=== PATIENT | female | born 1960 | race Caucasian/White ===

== ENCOUNTER 2023-09-06 22:28 | Emergency (ER) | payer BC, SELFPAY ==
--- NOTE | ~2023-09-06 | CT_ITS ---
EXAMINATION: CTA chest PE protocol DATE: 09/07/2023 00:27 INDICATION: Shortness of breath. Chest pain. TECHNIQUE: Computed tomography angiography (CTA) of the chest was performed with 100 mL Omnipaque-350 intravenous contrast timed to evaluate the pulmonary arteries. Coronal maximum intensity projection 3D-reconstructions were created by the technologist. Automated exposure control and iterative reconst ruction technique were employed. The dose-length product was 840.54 mGy-cm. COMPARISON: None. FINDINGS: The lungs demonstrate mild atelectasis. A calcified nodule in left lung is consistent with old granulomatous disease. No pleural effusion. The heart size is normal. There are coronary artery c alcifications. No pericardial effusion. There is no pulmonary embolus. There are bridging endplate os teophytes at multiple levels in the spine, consistent with diffuse idiopathic skeletal hyperostosis ( DISH). There is severe upper thoracic spondylosis. IMPRESSION: 1. No pulmonary embolus. Reviewed, dictated and finalized at location A. IMPRESSION: 1. No pulmonary embolus.
[2023-09-06 22:28] VITALS: PULSE 121
[2023-09-06 22:32] VITALS: BP 132/70; PULSE 116; RESP 19; TEMP 36.5; O2SAT 98
--- NOTE | 2023-09-06 22:49 | ECG_ITS ---
Test Date: 2023-09-06 23:04:31 Measurements Intervals [place] Rate: 114 P: 0 FL: 0 QRS: -14 QRSD: 88 T: 80 QT: 302 QTc: 416 Interpretive Statements ATRIAL FLUTTER/TACHYCARDIA WITH RAPID VENTRICULAR RESPONSE VENTRICULAR PREMATURE COMPLEX LOW QRS VOLTAGE IN PRECORDIAL LEAD BORDERLINE ST-T WAVE ABNORMALITY- HIGH LATERAL LEADS BASELINE ARTIFACT- I, II, III, AVR, AVL, AVF ABNORMAL ECG No previous ECG available for comparison Electronically Signed On 09-07-2023 07:56:26 CDT by Pancho Peterson D.O.
[2023-09-06 23:02] VITALS: PULSE 125; RESP 20; O2SAT 98
[2023-09-06 23:03] LABS: Basophils Absolute Auto 0.05 K/mm3 (0.00-0.10); Basophils Percent Auto 0.6 % (0.0-1.0); Eosinophils Absolute Auto 0.28 K/mm3 (0.02-0.50); Eosinophils Percent Auto 3.1 % (1.0-6.0); Hematocrit 39.7 % (35.0-49.0); Hemoglobin 13.5 g/dL (12.0-15.0); Immature Granulocyte Absolute 0.03 K/mm3 (0.00-0.00); Immature Granulocyte Percent A 0.3 % (0.0-0.0); Lymphocytes Absolute Auto 3.23 K/mm3 (1.10-4.50); Lymphocytes Percent Auto 35.8 % (18.0-42.0); Mean Corpuscular Hemoglobin 30.6 pg (27.0-31.0); Mean Platelet Volume 9.1 fl (9.2-11.8); Monocytes Absolute Auto 0.62 K/mm3 (0.10-0.90); Monocytes Percent Auto 6.9 % (2.0-11.0); Neutrophils Absolute Auto 4.81 K/mm3 (1.70-7.20); Neutrophils Percent Auto 53.3 % (50.0-70.0); Platelet Count Result 329 K/mm3 (150-420); Red Blood Count 4.41 M/mm3 (4.20-5.40); Red Cell Distribution Width 12.7 % (11.6-14.4)
--- NOTE | 2023-09-06 23:04 | ED.CHESTPAIN ---
HPI - Chest Pain General Chief Complaint: Shortness of Breath/Dyspnea Stated Complaint: shortness of breath Time Seen by Provider: 09/06/23 22:41 Source: patient Mode of arrival: ambulatory Limitations: no limitations History of Present Illness HPI narrative: Patient is a 63-year-old female with chest pain and shortness of breath this evening. She has right chest pain that radiates to the midline and somewhat to the left chest. This is a similar sensation in to a prior PE. She is no longer on anticoagulation. She is postop surgery in the next few weeks for plastics. She has also had a DVT. She is not on chronic Coumadin or Eliquis. She is on aspirin. MD complaint: chest pain Pertinent past history: other ( prior PE) Onset (ago): day(s) (3) Timing of current episode: episodic Prior episodes: Yes Onset: during rest Pain location: left chest and right chest Pain radiation: neck and right shoulder Severity: moderate Pain scale (0-10): 5 Quality: tightness and sharp Relieving factors: nothing Exacerbating factors: nothing Context: history of DVT/PE Treatment prior to arrival: aspirin Risk Factors Coronary artery disease risk factors: diabetes Thoracic aortic dissection risk factors: none Pulmonary embolism risk factors: history of deep vein thrombosis and history of pulmonary embolism Related Data On Oral Contraceptives: No Home Medications Medication Instructions Recorded Confirmed cephalexin 500 mg capsule 500 mg PO Q12H 09/07/23 09/07/23 ergocalciferol (vitamin D2) 1,250 1,250 mcg PO DAILY 09/07/23 09/07/23 mcg (50,000 unit) capsule fenofibrate 160 mg tablet 160 mg PO DAILY 09/07/23 09/07/23 furosemide 20 mg tablet 20 mg PO DAILY 09/07/23 09/07/23 ibuprofen 800 mg tablet 800 mg PO PRN 09/07/23 09/07/23 insulin syringe-needle U-100 1 mL 09/07/23 09/07/23 27 gauge x 5/8 (Insulin Syringe MicroFine) insulin syringe-needle U-100 1 mL 09/07/23 09/07/23 31 gauge x 5/16 (TRUEplus Insulin) levothyroxine 150 mcg tablet 150 mcg PO DAILY 09/07/23 09/07/23 (Synthroid) levothyroxine 200 mcg tablet 200 mcg PO DAILY 09/07/23 09/07/23 (Synthroid) potassium chloride 20 mEq 20 meq PO DAILY 09/07/23 09/07/23 tablet,extended release(part/cryst) (Klor-Con M) semaglutide 2 mg/dose (8 mg/3 mL) 2 mg subcut WEEKLY 09/07/23 09/07/23 subcutaneous pen injector (Ozempic) zaleplon 10 mg capsule 10 mg PO PRN 09/07/23 09/07/23 Allergies Allergy/AdvReac Type Severity Reaction Status Date / Time No Known Allergies Allergy Verified 09/06/23 23:18 Review of Systems Review of Systems: All systems reviewed & are unremarkable except as noted in HPI and below Constitutional: Constitutional: Reports no additional constitutional complaints Eyes: Eyes: Reports no additional eye complaints ENT: Reports system reviewed and no additional complaints, except as documented Cardiovascular: Cardiovascular: Reports no additional cardiovascular complaints Respiratory: Respiratory: Reports no additional respiratory complaints Gastrointestinal: Gastrointestinal: Reports no additional gastrointestinal complaints Genitourinary: Genitourinary: Reports no additional female genitourinary complaints Musculoskeletal: Musculoskeletal: Reports no additional musculoskeletal complaints Integumentary/Breasts: Skin/Breast: Reports system reviewed and no additional complaints, except as docu Neurologic: Reports system reviewed and no additional complaints, except as documented Psychiatric: Psychiatric: Reports no additional psychiatric complaints Endocrine: Endocrine: Reports no additional endocrine complaints Hematologic/Lymphatic: Hematologic/Lymphatic: Reports no additional hematologic/lymphatic complaints Allergic/Immunologic: Allergic/Immunologic: Reports no additional allergic/immunologic complaints Exam Const: General: healthy appearing Nutritional Appearance: well nourished Orientation/consciousness: patient oriented
[2023-09-06 23:15] VITALS: PULSE 109; PULSE 129; RESP 26; O2SAT 98
[2023-09-06 23:17] VITALS: BP 151/99; PULSE 130; RESP 16; O2SAT 97
[2023-09-06 23:18] LABS: INR 0.9; Partial Thromboplastin Time 23.4 Sec (23.9-30.70); Prothrombin Time 10.4 Seconds (9.50-12.1)
[2023-09-06 23:29] LABS: Alanine Aminotransferase 18 U/L (14-59); Albumin Level 3.2 g/dL (3.4-5.0); Alkaline Phosphatase 51 U/L (46-116); Anion Gap 8 mmol/L (4-12); Aspartate Amino Transferase 12 U/L (15-37); Bilirubin,Total 0.3 mg/dL (0.00-1.00); Blood Urea Nitrogen 21 mg/dL (7-18); Calcium 9.7 mg/dL (8.5-10.1); Carbon Dioxide 26 mmol/L (21-32); Chloride 104 mmol/L (98-108); Estimated CRCL calculation 81 ml/min; Estimated Glomerular Filt Rate 60; Glucose 157 mg/dL (70-99); Osmolality Calculated 292 mOsm/kg (285-295); Potassium 3.8 mmol/L (3.5-5.1); Sodium 138 mmol/L (136-145); Total Protein 7.1 g/dL (6.4-8.2)
[2023-09-06] MEDS: dilTIAZem HCl INJ 25 MG/5 ML VIAL 10 MG IV PUSH (23:29)
[2023-09-06 23:30] LABS: Thyroid Stimulating Hormone 0.33 uIU/mL (0.36-3.74); Troponin I 11.9 ng/L (0.00-60.4)
[2023-09-06 23:59] VITALS: PULSE 109; RESP 19; O2SAT 98
[2023-09-07] VITALS (93 sets, daily range): BP systolic 101–156; BP diastolic 47–97; PULSE 71–139; RESP 5–34; O2SAT 93–100
[2023-09-07] MEDS: ENOXAPARIN 100 MG/ML SYRINGE SUB-Q (03:24)
[2023-09-07] MEDS: ENOXAPARIN 40 MG/0.4 ML SYRINGE SUB-Q (03:25)
--- NOTE | 2023-09-07 07:02 | PC.NURSE ---
handoff report given to DALE Lindsay
--- NOTE | 2023-09-07 07:09 | PC.NURSE ---
0705 report from DALE Cote. introduced self to pt, pt sitting up on side of bed. call ott in reach.
--- NOTE | 2023-09-07 08:33 | PC.NURSE ---
breakfast tray provided to pt.
[2023-09-07] MEDS: dilTIAZem HCL CD 120 MG CAP.24HR PO (13:22)
--- NOTE | 2023-09-07 14:12 | PC.NURSE ---
pt up and ambulated to bathroom. awaiting ems arrival.
--- NOTE | 2023-09-07 14:30 | PC.NURSE ---
1425 pt ambulated to ems cot. stable and alert. no chest pain.
== END 2023-09-07 14:31 | disposition short-term general hospital (02) ==
PROVIDERS: Emergency Medicine; Emergency Provider Emergency Medicine
DX: I48.92 Unspecified atrial flutter (principal); Z79.82 Long term (current) use of aspirin; Z79.01 Long term (current) use of anticoagulants; Z79.4 Long term (current) use of insulin; Z86.718 Personal history of other venous thrombosis and embolism
CPT/HCPCS: 36415; 71275; 80053; 84443; 84484; 85025; 85610; 85730; 93005; 96372; 96374; 99285; A9270; J1650; Q9967

== ENCOUNTER 2023-09-07 15:05 | Observation (INO) | payer BC, SELFPAY ==
[2023-09-07] VITALS (8 sets, daily range): BP systolic 138–157; BP diastolic 80–96; PULSE 71–91; RESP 16–20; TEMP 36.4–36.5; O2SAT 99–100; BMI 45.9
--- NOTE | 2023-09-07 15:06 | ADMGEN ---
This patient, Chantale Waldrop, was admitted to IMU Room 202-01 from [facility] at 1500. Patient/family oriented to hospital policies and general routines including ID bracelet, bed and alarms, visiting hours, pain management, procedures, bathroom and other care routines, personal items, smoking policy, room service/diet, and visiting hours. Information on how to activate the Rapid Response Team has been discussed. Patient/Family are encouraged to report perceived risks to care and to ask questions if they do not understand what they are told or what they should do.
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
--- NOTE | 2023-09-07 15:27 | ECG_ITS ---
Test Date: 2023-09-07 19:48:34 Measurements Intervals [place] Rate: 84 P: 0 ND: 0 QRS: 0 QRSD: 92 T: 142 QT: 357 QTc: 424 Interpretive Statements ATRIAL FLUTTER/TACHYCARDIA DELAYED PRECORDIAL R/S TRANSITION LEFT VENTRICULAR HYPERTROPHY WITH ST-T CHANGE NONSPECIFIC ST ABNORMALITY- LATERAL LEADS BASELINE ARTIFACT- I, II, III, AVR, AVL, AVF, V1-V3 ABNORMAL ECG Compared to ECG 09/06/2023 23:04:31 HEART RATE HAS DECREASED Electronically Signed On 09-08-2023 07:35:05 CDT by Pancho Peterson D.O.
[2023-09-07 16:02] LABS: Troponin I < 0.012 ng/mL (0.000-0.034)
[2023-09-07 16:07] LABS: Free T4 Free Thyroxine 1.81 ng/mL (0.78-2.19)
[2023-09-07 19:15] LABS: Troponin I < 0.012 ng/mL (0.000-0.034)
[2023-09-07] MEDS: ENOXAPARIN 40 MG/0.4 ML SYRINGE SUB-Q (20:39)
[2023-09-07] MEDS: NITROGLYCERIN SL 0.4 MG TABLET SUBLINGUAL (20:41)
[2023-09-07 20:58] LABS: Influenza A QL RT-PCR Negative (Negative); Influenza B QL RT-PCR Negative (Negative); RSV RNA, RT-PCR Negative (Negative); SARS-CoV-2 RNA PCR Negative (Negative)
[2023-09-07 21:33] LABS: Glucose Point of Care 146 mg/dl (65-105)
[2023-09-07] MEDS: BELLADONNA ALK/PHENOB ELIX 10 ML, MAG HYDROX/ALUMINUM HYD/SIMETH 30 ML, LIDOCAINE HCL 2... PO (22:08)
[2023-09-08] VITALS (18 sets, daily range): BP systolic 134–164; BP diastolic 76–98; PULSE 56–90; RESP 16–20; TEMP 36.3–36.6; O2SAT 98–100
--- NOTE | 2023-09-08 01:03 | ECG_ITS ---
Test Date: 2023-09-08 01:11:55 Measurements Intervals [place] Rate: 77 P: 177 NC: 167 QRS: 199 QRSD: 105 T: 117 QT: 399 QTc: 454 Interpretive Statements SINUS RHYTHM ARM LEADS REVERSED DELAYED PRECORDIAL R/S TRANSITION BASELINE ARTIFACT- I, II, AVR, AVL ATYPICAL ECG Compared to ECG 09/07/2023 19:48:34 Atrial flutter no longer present Electronically Signed On 09-08-2023 07:37:53 CDT by Pancho Peterson D.O.
[2023-09-08] MEDS: WATER FOR IRRIGATION, STERILE 1,000 ML BOTTLE 1000 ML (01:13)
[2023-09-08 05:10] LABS: Basophils Percent Auto 0.5 % (0.2-1.2); Eosinophils Absolute Auto 0.2 K/mm3 (0-0.3); Eosinophils Percent Auto 3.1 % (0-4.4); Hematocrit 40.7 % (37.0-47.0); Hemoglobin 13.5 g/dL (12.0-15.0); Immature Granulocyte Absolute 0.01 K/mm3 (0.00-0.031); Immature Granulocyte Percent A 0.1 % (0-0.5); Lymphocytes Percent Auto 35.4 % (18.3-44.2); Mean Corpuscular HGB Conc 33.2 g/dl (32-36); Mean Corpuscular Hemoglobin 30.3 pg (26-34); Mean Corpuscular Volume 91.5 fl (80-100); Mean Platelet Volume 9.7 fl (7.4-10.4); Monocytes Absolute Auto 0.5 K/mm3 (0.1-0.6); Monocytes Percent Auto 6.4 % (2.6-8.5); Neutrophils Absolute Auto 4.2 K/mm3 (1.3-6.7); Neutrophils Percent Auto 54.5 % (45.5-73.1); Platelet Count Result 336 k/mm3 (150-375); Red Blood Count 4.45 M/mm3 (4.2-5.4); Red Cell Distribution Width 12.9 % (11.5-14.5); White Blood Count 7.6 K/mm3 (4.5-10.0)
[2023-09-08 05:24] LABS: Hemoglobin A1C 6.2 % (<5.7)
[2023-09-08 05:26] LABS: Anion Gap 6 mmol/L (4-12); Blood Urea Nitrogen 17 mg/dL (7-17); Calcium 9.4 mg/dL (8.4-10.2); Carbon Dioxide 28 mmol/L (22-30); Chloride 106 mmol/L (98-107); Estimated CRCL calculation 95 ml/min; Estimated Glomerular Filt Rate > 60; Glucose 136 mg/dL (65-110); Potassium 3.7 mmol/L (3.4-5.0); Sodium 140 mmol/L (137-145)
[2023-09-08] MEDS: LEVOTHYROXINE SODIUM 100 MCG TABLET 200 MCG PO (06:03)
[2023-09-08] MEDS: LEVOTHYROXINE SODIUM 150 MCG TABLET PO (06:03)
[2023-09-08] MEDS: dilTIAZem HCL CD 120 MG CAP.24HR PO (06:14)
[2023-09-08 07:49] LABS: Glucose Point of Care 155 mg/dl (65-105)
--- NOTE | 2023-09-08 09:11 | PM.IMPN ---
Progress Note: A&P Assessment and Plan (1) Atrial arrhythmia: Code(s): I49.8 - Other specified cardiac arrhythmias Status: Acute Assessment and Plan: EKG with new onset afib on admission and pt was symptomatic, placed on Cardizem -last EKG reveals NSR at 1am but pt was symptomatic with tachycardia again at 7am--no ekg done at that time. -troponins negative x 3 -echo ordered; won't be done until saturday per cardiology -Increase lovenox to 1mg/kg dose. Will roca eliquis -TSH a bit low, on levothyroxine but pt had TSH a few weeks ago that was 0.169. would recommend rechecking in 4 weeks as it is already better than the first outpt draw. no adjustment needed at this time -continue telemetry monitoring -cardiology consult -no pulmonary edema on CT, pt euvolemic on exam--on lasix at home PRN. check bnp -no infx on exam or hx (2) Diabetes: Code(s): E11.9 - Type 2 diabetes mellitus without complications Status: Acute Assessment and Plan: A1c in good control -continue ozempic and dietary modification -SSI while hospitalized (3) Afib: Code(s): I48.91 - Unspecified atrial fibrillation Status: Acute Assessment and Plan: as above (4) Hypothyroidism: Code(s): E03.9 - Hypothyroidism, unspecified Status: Acute Assessment and Plan: As above -recommend checking TSH in 4 weeks Plan pt has a piniculectomy scheduled for next month. I let her know she will need cardiology eval and a AC plan before this occurs and that she should talk to her doctor about th is. She agree. Diet: Heart healthy, diabetic GI Prophylaxis: Not currently indicated DVT Prophylaxis: Lovenox b.i.d. Lines: Peripheral Code Status: Full code Time Spent With Patient Time with patient: 25 - 35 minutes Subjective Date/time seen: 09/08/23 09:11 Interval history: Pt is a 63-year-old female who is here for chest pain with elevated heart rate. Patient was seen today and states the symptoms reoccurred this morning around 7:00 a.m.. She let her nurse know and she was given the Cardizem which made her feel better. She had shortness of breath, nausea, chest palpitations, and a slight headache during this time. She has not had any other issues such as dysuria, constipation, new rashes, wounds, or leg swelling. She takes lasix PRN at home for swelling. no hx of cardiac dz. She does have hx of DVT and PE. Review of Systems Review of Systems: All systems reviewed & are unremarkable except as noted in HPI and below Exam Narrative: General: Well developed well nourished patient in NAD HEENT: normocephalic Neck: supple Neuro: Alert and oriented x4. Strength 5/5 in UE and LE bilaterally CV:RRR on exam. tele with afib [id number] at 7am. now back to normal rate Resp:CTA, bilaterally Abd: Soft, non distended. No pain to palpation. Positive bowel sounds Extremities: No swelling, erythema, or pain to palpation. Objective Data Vital Signs Vital Signs: Vital Signs - 24 hr 09/07/23 15:22 09/07/23 15:52 09/07/23 16:00 Temperature 97.7 F Pulse Rate 71 90 Respiratory Rate 16 Blood Pressure 157/96 H Pulse Oximetry 100 Oxygen Delivery Room Air 09/07/23 18:00 09/07/23 19:51 09/07/23 20:00 Temperature 97.6 F Pulse Rate 85 91 Respiratory Rate 19 Blood Pressure 151/80 H Pulse Oximetry 99 Oxygen Delivery Room Air 09/07/23 20:50 09/07/23 20:00 09/07/23 22:00 Temperature Pulse Rate 77 73 Respiratory Rate Blood Pressure 138/83 Pulse Oximetry Oxygen Delivery 09/07/23 23:35 09/08/23 00:00 09/08/23 00:00 Temperature 97.8 F Pulse Rate 73 70 73 Respiratory Rate 20 20 Blood Pressure 141/89 H Pulse Oximetry 99 99 Oxygen Delivery Autopap 09/08/23 00:00 09/08/23 02:00 09/08/23 03:47 Temperature Pulse Rate 90 Respiratory Rate Blood Pressure Pulse Oximetry Oxygen Delivery Room Air [place]
[2023-09-08] MEDS: ENOXAPARIN 100 MG/ML SYRINGE SUB-Q (09:23)
[2023-09-08] MEDS: FENOFIBRATE 160 MG TABLET PO (09:24)
[2023-09-08] MEDS: POTASSIUM CHLORIDE 20 MEQ ER TABLET PO (09:24)
[2023-09-08] MEDS: ENOXAPARIN 40 MG/0.4 ML SYRINGE SUB-Q (09:24)
[2023-09-08] MEDS: FUROSEMIDE 20 MG TABLET PO (09:24)
[2023-09-08] MEDS: ERGOCALCIFEROL 50,000 UNITS CAPSULE 50000 UNITS PO (09:27)
[2023-09-08 10:57] LABS: NT Pro B Type Natriuretic Pept 785 pg/mL (19.9-100)
[2023-09-08 11:36] LABS: Glucose Point of Care 151 mg/dl (65-105)
--- NOTE | 2023-09-08 12:45 | PM.CNCAR ---
Assessment and Plan Assessment and plan (1) Atrial flutter: Code(s): I48.92 - Unspecified atrial flutter Status: Acute Plan This is a 63-year-old lady presenting with symptomatic atrial flutter with RVR. She has converted to sinus rhythm after being rate controlled with diltiazem yesterday is currently still having some symptoms of pleuritic sounding chest pain but no other symptoms currently. The etiology of her atrial fibrillation is almost certainly related to untreated sleep apnea/morbid obesity. Discussed treatment options with the patient and recommended anti coagulation and antiarrhythmic therapy currently. The patient is hesitant to take a specific antiarrhythmic agent. For that reason I will start with metoprolol and apixaban. 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 We also had a discussion regarding the importance of treating her sleep apnea as the source of atrial arrhythmias are highly correlated with sleep disordered breathing. Will review her echocardiogram when it is done tomorrow and her telemetry. Hopefully she will remain in sinus rhythm, stable and be able to be discharged for outpatient follow-up tomorrow Zeferino Garcia MD [facility] History of Present Illness History of Present Illness Consult date/time: 09/08/23 12:45 Reason For Visit: a flutter Narrative: This is a 63-year-old woman I am seeing today at the request of the hospitalist to assist with the management and evaluation of atrial flutter. She is not known to me prior to this consultation and I do not believe she has been hospitalized here at [facility] in the past. She was transferred here yesterday from the emergency room in [place] with the diagnosis of new onset atrial flutter. She came to the emergency room up there reporting symptoms of palpitations, tachycardia shortness of breath with modest activity. She also has been having some episodes of sharp pinpoint chest pain that she describes in the low substernal region. She also has some pain in the chest when she takes a deep breath. She was found to be in atrial flutter with a moderately rapid ventricular response. She was placed on diltiazem after receiving an oral bolus dosage and anticoagulation with Lovenox. She was transferred to this hospital for further is her assessment and management. The patient has no prior history of cardiac problems that she can recall. She does have a history of morbid obesity, hypothyroidism as well as a history of untreated sleep apnea. 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 She moved here recently from [place] for family reasons and resides in the [facility]. She normally does not have any exertional symptoms such as chest pain shortness of breath she denies orthopnea PND or edema. Earlier today she converted to sinus rhythm on telemetry. She is currently asymptomatic other than still having some low thoracic back pain when she takes a deep breath. CTA was negative for evidence of pulmonary embolism. She does have a prior history of DVT/PE several times over the years. Most recent episode of DVT was a few years ago coincident with a COVID infection. Her physician in [place] has had her anticoagulated in the past but currently she is not anticoagulated. Review of Systems Constitutional: Constitutional: Reports no additional constitutional complaints Eyes: Eyes: Reports no additional eye complaints ENT: Reports system reviewed and no additional complaints, except as documented Cardiovascular: Cardiovascular: Reports as per HPI Respiratory: Respiratory: Reports as per HPI Gastrointestinal: Gastrointestinal: Reports no additional gastrointestinal complaints Musculoskeletal: Musculoskeletal: Reports no additional musculoskeletal complaints Integumentary/Breasts: Skin/Breast: Reports system revie
[2023-09-08] MEDS: METOPROLOL SUCCINATE EXT REL 50 MG TABCR PO (15:24)
[2023-09-08 16:39] LABS: Glucose Point of Care 134 mg/dl (65-105)
[2023-09-08 20:04] LABS: Glucose Point of Care 147 mg/dl (65-105)
[2023-09-08] MEDS: APIXABAN 5 MG TABLET PO (21:20)
[2023-09-09] VITALS (9 sets, daily range): BP systolic 114–157; BP diastolic 58–74; PULSE 62–77; RESP 16–20; TEMP 36–36.7; O2SAT 98–100
--- NOTE | 2023-09-09 | ECHO_ITS ---
Patient Info Name: Chantale Waldrop Age: 63 years : 1960 Gender: Female Ht: 68 in Wt: 302 lbs BSA: 2.64 m2 HR: 71 bpm BP: 114 / 64 mmHg Heart Rhythm: Sinus Rhythm Technical Quality: Fair Exam Date: 09/09/2023 8:57 AM Exam Location: Echo Lab Patient Status: Inpatient Admit Date: 09/07/2023 Staff Ordering Physician: Pooja Abraham APRN First Beater: Denis Pineda MARILEE Attending Provider: Nancy Sanford PA-C Referring Physician: Leigh MARADIAGA; Exam Type: CA echo dop color flow w con Study Info Indications - atrial flutter Complete two-dimensional, color flow and Doppler transthoracic echocardiogram is performed with contrast to opacify the left ventricle and to improve the deliniation of the left ventricle endocardial borders. Contrast/Agitated Saline Contrast/Ag. Saline: Definity Amount: 2.00 ml IV Access Condition: patent with no signs of infiltration Summary 1. Left ventricular chamber dimension is mildly enlarged. 2. Left ventricular systolic function is normal, estimated at 60-65%. 3. There is mildly increased left ventricular wall thickness. 4. The left ventricular diastolic function is normal. 5. Left atrial chamber dimension is moderately enlarged. 6. There is mild aortic valve stenosis with a peak velocity of 174.81 cm/s, mean gradient of 6 mmHg, and aortic valve area of 2.00 cm2. 7. There is moderate aortic valve calcification. 8. There is mild to moderate mitral valve regurgitation. 9. There is mild tricuspid valve regurgitation. 10. Mild pulmonary hypertension, estimated pulmonary arterial systolic pressure is 36 mmHg. 11. There is mild pulmonic regurgitation. Left Ventricle Left ventricular chamber dimension is mildly enlarged. Left ventricular systolic function is normal, estimated at 60-65%. There is mildly increased left ventricular wall thickness. The left ventricular diastolic function is normal. Right Ventricle Right ventricular chamber dimension is normal. Right ventricular systolic function is normal. Left Atria Left atrial chamber dimension is moderately enlarged. Right Atria Right atrial chamber dimension is normal. Atrial Septum Intact interatrial septum visualized by color flow imaging. Aortic Valve The aortic valve is trileaflet. There is mild aortic valve stenosis with a peak velocity of 174.81 cm/s, mean gradient of 6 mmHg, and aortic valve area of 2.00 cm2. There is trace aortic valve regurgitation. There is moderate aortic valve calcification. Pulmonic Valve The pulmonic valve is normal. There is no pulmonic valve stenosis. There is mild pulmonic regurgitation. Mitral Valve The mitral valve has normal leaflets. There is no mitral valve stenosis. There is mild to moderate mitral valve regurgitation. Tricuspid Valve The tricuspid valve leaflets are normal. There is no significant tricuspid valve stenosis. There is mild tricuspid valve regurgitation. Mild pulmonary hypertension, estimated pulmonary arterial systolic pressure is 36 mmHg. Pericardium/Pleural The pericardium appears normal. There is no pericardial effusion. Inferior Vena Cava Normal inferior vena cava with >50% collapse upon inspiration consistent with normal right atrial pressure, 10 mmHg. Aorta The aortic root size at the sinus of Valsalva is normal. Left Ventricular Outflow Tract Name Value Normal
[2023-09-09 04:42] LABS: Alanine Aminotransferase 14 U/L (6-35); Albumin Level 3.5 g/dL (3.5-5.1); Alkaline Phosphatase 53 U/L (38-126); Anion Gap 11 mmol/L (4-12); Aspartate Amino Transferase 17 U/L (14-36); Bilirubin,Total 0.3 mg/dL (0.2-1.3); Blood Urea Nitrogen 15 mg/dL (7-17); Calcium 9.2 mg/dL (8.4-10.2); Carbon Dioxide 23 mmol/L (22-30); Chloride 105 mmol/L (98-107); Estimated CRCL calculation 96 ml/min; Estimated Glomerular Filt Rate > 60; Glucose 126 mg/dL (65-110); Potassium 3.6 mmol/L (3.4-5.0); Sodium 139 mmol/L (137-145)
[2023-09-09] MEDS: LEVOTHYROXINE SODIUM 150 MCG TABLET PO (06:14)
[2023-09-09] MEDS: LEVOTHYROXINE SODIUM 100 MCG TABLET 200 MCG PO (06:14)
[2023-09-09] MEDS: METOPROLOL SUCCINATE EXT REL 50 MG TABCR PO (10:10)
[2023-09-09] MEDS: FENOFIBRATE 160 MG TABLET PO (10:10)
[2023-09-09] MEDS: APIXABAN 5 MG TABLET PO (10:10)
--- NOTE | 2023-09-09 10:19 | PM.PNCARD ---
Progress Note: A&P Assessment and Plan (1) Atrial flutter: Code(s): I48.92 - Unspecified atrial flutter Status: Acute Assessment and Plan: Still in sinus rhythm. Continue metoprolol and Eliquis. Echocardiograms is pending. Assuming unremarkable, okay for discharge (2) Hypokalemia: Code(s): E87.6 - Hypokalemia Status: Acute Assessment and Plan: Potassium 3.5 today. Will replace with 40 mEq of potassium chloride p.o. x1. (3) PIO (obstructive sleep apnea): Code(s): G47.33 - Obstructive sleep apnea (adult) (pediatric) Status: Acute Assessment and Plan: Will need outpatient sleep study and referral to Sleep Medicine (4) Personal history of thromboembolic disease: Code(s): Z86.718 - Personal history of other venous thrombosis and embolism Status: Acute Assessment and Plan: Continue Eliquis perioperatively. Will not need enoxaparin for upcoming panniculectomy as patient should be on full anticoagulation in the form of Eliquis due to atrial flutter Subjective Date/time seen: 09/09/23 10:19 Interval history: Pt is a 63-year-old female who is here for chest pain with elevated heart rate. Date of service 09/09/2023: Still in sinus rhythm. Feels well. Wants to go home. No chest pain or shortness breath Review of Systems Constitutional: Constitutional: Reports no additional constitutional complaints Eyes: Eyes: Reports no additional eye complaints ENT: Reports system reviewed and no additional complaints, except as documented Cardiovascular: Cardiovascular: Reports as per HPI Respiratory: Respiratory: Reports as per HPI Gastrointestinal: Gastrointestinal: Reports no additional gastrointestinal complaints Musculoskeletal: Musculoskeletal: Reports no additional musculoskeletal complaints Integumentary/Breasts: Skin/Breast: Reports system reviewed and no additional complaints, except as docu Endocrine: Endocrine: Reports no additional endocrine complaints Hematologic/Lymphatic: Hematologic/Lymphatic: Reports no additional hematologic/lymphatic complaints Allergic/Immunologic: Allergic/Immunologic: Reports no additional allergic/immunologic complaints Exam Const: General: comfortable and no acute distress Other: Pleasant obese white female(BMI 46) comfortable cooperative no distress HENMT: Mouth: Yes moist mucous membranes Eyes: Sclera: sclerae normal Neck: Neck: supple Other: No carotid bruits, difficult to comment on JVD because of obesity Resp: Effort & Inspection: normal respiratory effort Auscultation: clear to auscultation bilaterally Cardio: Rate: regular rate Rhythm: regular rhythm Other: No audible murmur, PMI is not palpable GI: Auscultation: normal bowel sounds Skin: General skin exam: normal color Neuro: Speech: normal speech Other: Alert and oriented x3 Extrem: General: normal to inspection Other: Normal perfusion Psych: Affect: normal affect Objective Data Vital Signs Vital Signs: Vital Signs - 24 hr 09/08/23 11:38 09/08/23 12:00 09/08/23 14:00 Temperature 36.3 C L Pulse Rate 74 73 64 Respiratory Rate 20 Blood Pressure 164/98 H Pulse Oximetry 100 Oxygen Delivery 09/08/23 12:00 09/08/23 15:24 09/08/23 16:00 Temperature 36.4 C Pulse Rate 64 71 Respiratory Rate 16 Blood Pressure 134/76 Pulse Oximetry 99 Oxygen Delivery Room Air 09/08/23 16:00 09/08/23 18:00 09/08/23 16:00 Temperature Pulse Rate 57 L 59 L Respiratory Rate Blood Pressure Pulse Oximetry Oxygen Delivery Room Air 09/08/23 19:37 09/08/23 23:18 09/09/23 00:00 Temperature 36.4 C L 36.5 C Pulse Rate 56 L 74 68 Respiratory Rate 18 16 16 Blood Pressure 147/76 H 122/59 L Pulse Oximetry 100 98 98 Oxygen Delivery Autopap 09/08/23 20:00 09/08/23 22:00 09/09/23 00:00 Temperature Pulse Rate 74 70 69 Respiratory Rate Blood Press
[2023-09-09] MEDS: POTASSIUM CHLORIDE 20 MEQ ER TABLET 40 MEQ PO (11:29)
--- NOTE | 2023-09-09 13:07 | PM.DS ---
DS: Admitting Diagnosis Discharge Date 09/09/23 Admitting Diagnosis Atrial fib/flutter and RVR DS: Discharge Diagnosis Discharge Diagnosis (1) Atrial arrhythmia: Code(s): I49.8 - Other specified cardiac arrhythmias Status: Acute (2) Atrial flutter: Code(s): I48.92 - Unspecified atrial flutter Status: Acute (3) PIO (obstructive sleep apnea): Code(s): G47.33 - Obstructive sleep apnea (adult) (pediatric) Status: Acute (4) Personal history of thromboembolic disease: Code(s): Z86.718 - Personal history of other venous thrombosis and embolism Status: Acute DS: Summary Hospital Course Reason for hospitalization: Atrial fibrillation RVR Hospital Course: Patient is a 63-year-old female 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 Patient was found to be in atrial fibrillation/flutter at this on ED in transfer to [facility] for further evaluation. Of note patient has significant VT history with PE in 1982 and 2019, DVT in 2015. She is currently not on anticoagulation. Patient converted to normal sinus rhythm 09/06 after dose of Cardizem. Cardiology consult recommendations for metoprolol 50 mg Toprol-XL daily, Eliquis for anticoagulation for elevated [id number] score 5. Patient echocardiogram 09/09/2023 with no WMA, EF 60-65%, normal diastolic function, mild aortive valve stenosis, moderate aortic valve calcification. At time of discharge, patient's labs are stable, vitals stable, patient is stable for discharge home. She will follow up with Cardiology in 1 month. She will need to establish care with PCP, referrals given. She will need outpatient sleep study for CPAP machine. Cardiology will take care of patient's cardiac clearance for panniculectomy at the office. No stress test needed, no issues with ADLs. Hemoglobin A1c 6.2, TSH 0.33, free T4 1.81. Patient understands and agrees with plan. Status at Discharge Cognitive/behavioral status at discharge: Baseline Time Spent with Patient Time attestation: Total time spent providing and/or coordinating discharge services: 35 minutes Exam Narrative: - GENERAL: Pleasant obese elderly woman no acute distress. Well-nourished. - EYES: EOMI. Anicteric. - HENT: Moist mucous membranes. - LUNGS: Clear to auscultation bilaterally, no wheezing, rhonchi, or rales. - CARDIOVASCULAR: Regular rate and rhythm. No murmur. No JVD. - ABDOMEN: Soft, non-tender and non-distended. No palpable masses. - EXTREMITIES: No edema. Peripheral pulses 2+. Non-tender. - NEUROLOGIC: No focal neurological deficits. CN II-XII grossly intact. - PSYCHIATRIC: Awake, Alert and oriented x 3. Appropriate mood and affect. - SKIN: No rashes or lesions. Warm. - LYMPH: No cervical lymphadenopathy. DS: Data Data Completed and Pending Labs on day of discharge: Labs from last 24 hours 09/09/23 09/08/23 09/08/23 03:53 19:42 16:16 Sodium 139 Potassium 3.6 Chloride 105 Carbon Dioxide 23 Anion Gap 11 BUN 15 Creatinine 0.80 Estim Creat Clear Calc 96 Estimated GFR > 60 Glucose 126 H POC Capillary Glucose 147 H 134 H Calcium 9.2 Total Bilirubin 0.3 AST 17 ALT 14 Alkaline Phosphatase 53 Total Protein 6.0 L Albumin 3.5 Imaging Radiologist's impression: TTE 09/09/23 Summary 1. Left ventricular chamber dimension is mildly enlarged. 2. Left ventricular systolic function is normal, estimated at 60-65%. 3. There is mildly increased left ventricular wall thickness. 4. The left ventricular diastolic function is normal. 5. Left atrial chamber dimension is moderately enlarged. 6. There is mild aortic valve stenosis with a peak velocity of 174.81 cm/s, mean gradient of 6 mmHg, and aortic valve area of 2.00 cm2. 7. There is moderate aortic valve calcification. 8. There is mild to moderate mitral
[2023-09-09] MEDS: PERFLUTREN LIPID MICROSPHERES 1.5 ML VIAL DILUTED TO 10 ML TOTAL VOLUME IV PUSH (13:45)
--- NOTE | 2023-09-09 13:45 | IVDEFINITY ---
Prior to administration of IV Definity the patient was educated on the risks and benefits of the imaging enhancing agent including potential adverse side effects. The patient verbalized understanding. Allergies were verified. No exclusion criteria were identified and at least one of the following inclusion criteria were met: 1) physician request, 2) patient technically difficult to image (per the [place] [employer] Echocardi[employer] guidelines of two or more segments not discernable within the apical view), or 3) questionable left ventricular function. ?
[2023-09-09 16:32] LABS: Glucose Point of Care 121 mg/dl (65-105)
[2023-09-11 15:47] LABS: T3 Free 2.8 pg/mL
== END 2023-09-09 15:19 | disposition home or self-care (01) ==
PROVIDERS: Student in an Organized Health Care Education/Training Program; Admitting Provider Internal Medicine; Visit Provider Physician Assistant
DX: I48.92 Unspecified atrial flutter (principal); R00.0 Tachycardia, unspecified; E87.6 Hypokalemia; R06.02 Shortness of breath; E06.3 Autoimmune thyroiditis; G47.33 Obstructive sleep apnea (adult) (pediatric); I08.3 Combined rheumatic disorders of mitral, aortic and tricuspid valves; I27.20 Pulmonary hypertension, unspecified; E78.5 Hyperlipidemia, unspecified; I49.8 Other specified cardiac arrhythmias; E66.01 Morbid (severe) obesity due to excess calories; Z68.42 Body mass index [BMI] 45.0-49.9, adult; Z86.711 Personal history of pulmonary embolism; Z86.718 Personal history of other venous thrombosis and embolism; Z79.85 Long-term (current) use of injectable non-insulin antidiabetic drugs; Z20.822 Contact with and (suspected) exposure to COVID-19
CPT/HCPCS: 36415; 80048; 80053; 82948; 83036; 83880; 84439; 84480; 84484; 85025; 87637; 93005; 96372; 96374; A9270; C8929; G0378; J1650; Q9957

== ENCOUNTER 2024-06-24 15:01 | Outpatient (CLI) | payer BC, SELFPAY ==
--- NOTE | ~2024-06-24 | MM_ITS ---
EXAMINATION: MM screening robi BI w fabian HISTORY: Screening TECHNIQUE: Craniocaudal and mediolateral oblique 3-D tomosynthesis images were obtained and synthetic 2-D images were generated. CAD analysis was submitted and interpreted. COMPARISON: No prior mammogram is available for comparison at this institution. BREAST PARENCHYMAL COMPOSITION: Not dense: There are scattered areas of fibroglandular density. FINDINGS: There is no evidence of suspicious mass, calcification, or architectural distortion to sugg est malignancy in either breast. There has been no suspicious interval change. IMPRESSION: 1. No mammographic evidence of malignancy. 2. Recommend routine screening mammography in one year. BI-RADS Category 1: Negative Reviewed, dictated and finalized at location A.
--- OUTSIDE RECORDS SUMMARY | 2024-06-24 17:05 | XMS_ITS | Referral Summary ---
Author Organization [facility] [address] Address [address] [facility] [address] [place] [address] Care Team Providers Care Visual Display Manager Name Role Phone Unknown, Notinfile Primary Care Provider Unavail able Encounters Date Type Department Care Team Description 05/07/2024 2:30 PM RN TRAVEL Office Visit [facility] Cardiology at [address] [place] [address] Zeferino Garcia MD Typical atrial flutter (HCC) (Primary Dx); Lipid screening from Last 3 Months Allergies No known active allergies Medications ergocalciferol (VITAMIN D) 50,000 unit capsule 09/03/2023 Active fenofibrate (TRIGLIDE) 160 mg tablet 09/29/2023 Active furosemide (LASIX) 20 mg tablet as needed 09/03/2023 Active ibuprofen (ADVIL,MOTRIN) 800 mg tablet as needed 09/02/2023 Activ e Synthroid 150 mcg tablet Take 200 mg along with 150 mg daily 09/29/2023 Active Klor-Con M20 20 mEq CR tablet 09/03/2023 Activ e Ozempic 2 mg/dose (8 mg/3 mL) pen injector injection 09/03/2023 Active zaleplon (SONATA) 10 mg capsule as needed 09/03/2023 Activ e Eliquis 5 mg tabletIndications :atrial fibrillation Take 1 tablet (5 mg total) by mouth 2 (two) times a day 180 tablet 3 10/01/2023 10/01/19 25 Active metoprolol XL (TOPROL-XL) 50 mg extended release tabletIndications :Typical atrial flutter (HCC) Take 1 tablet (50 mg total) by mouth daily 90 tablet 3 10/01/2023 10/01/19 25 Active vitamin b complex tablet Take 1 tablet by mouth daily Active multivitamin tabletIndications :Vitamin Deficiency Prevention Take 1 tablet by mouth Active magnesium oxide (MAG-OX) 400 mg (241.3 mg elemental magnesium) tabletIndications :hypomagnesemia Take 1 tablet (400 mg total) by mouth daily Active biotin 10,000 mcg capsule Take by mouth daily Active Active Problems Problem Noted Date Diagnosed Date Typical atrial flutter 05/07/2024 Morbid (severe) obesity due to excess calories 0 09/30/2023 Body mass index (BMI) 45.0-49.9, adult Other thrombophilia 09/30/2023 Social History Tobacco Use Types Packs/Day Years Used Date Smoking Tobacco: Former Cigarettes Smokeless Tobacco: Never Tobacco Cessation:Counseling Given: Not Answered Comments Unknown Sex and Gender Information Value Date Recorded Sex Assigned at Not on file Legal Sex Female 7:40 PM RN TRAVEL Gender Identity Not on file Sexual Orientation Not on file Last Filed Vital Signs Vital Sign Reading Time Taken Comments Blood Pressure 132/82 05/07/2024 2:36 PM RN TRAVEL Pulse 63 05/07/2024 2:36 PM RN TRAVEL Temperature - - Respiratory Rate - - Oxygen Saturation 96% 05/07/2024 2:36 PM RN TRAVEL Inhaled Oxygen Concentration - - Weight 134.3 kg (296 lb) 05/07/2024 2:36 PM RN TRAVEL Height 172.7 cm (5' 8 ) 05/07/2024 2:36 PM RN TRAVEL Body Mass Index 45.01 05/07/2024 2:36 PM RN TRAVEL Plan of Treatment Not on file Procedures Procedure Name Priority Date/Time Associated Diagnosis Comments POCT LIPID PANEL Routine 05/07/2024 2:30 PM RN TRAVEL Lipid screening from Last 3 Months Results * POCT lipid panel (05/07/2024 2:30 PM RN TRAVEL) Cholesterol, POC 219 mg/dL HDL, POC 45 mg/dL Triglycerides, POC 283 mg/dL LDL Cholesterol POC 117 mg/dL Chol/HDL Ratio, POC 4.9 Non-HDL Cholesterol, POC 174 mg/dL Cholesterol Total, POC 219 mg/dL Capillary blood 05/07/2024 2 :30 PM RN TRAVEL Zeferino Garcia MD POINT OF CARE TEST ORDER FERMÍN Final Result from Last 3 Months Insurance [employer] ACCESS Care Teams Visual Display Manager Relationship Specialty Start Date End Date Unknown, Notinfile PCP - General 09/07/23
--- OUTSIDE RECORDS SUMMARY | 2024-06-24 17:06 | XMS_ITS | Clinical Summary ---
Author Organization [facility] [address] Address [address] [facility] [address] [place] [address] Care Team Providers Care Bottom Saw Operator Name Role Phone Unknown, Notinfile Primary Care Provider Unavail able Allergies No known active allergies Medications ergocalciferol [...] index (BMI) 45.0-49.9, adult Other thrombophilia 09/30/2023 Encounters Date Type Department Care Team Description 05/07/2024 2:30 PM JOINT MAKER MACHINE Office Visit [facility] Cardiology at [address] [place] [address] Zeferino Garcia MD Typical atrial flutter (HCC) (Primary Dx); Lipid screening from Last 3 Months Social History Tobacco Use Types Packs/Day Years Used Date Smoking Tobacco: Former Cigarettes Smokeless Tobacco: Never Tobacco Cessation:Counseling Given: Not Answered Comments Unknown Sex and Gender Information Value Date Recorded Sex Assigned at Not on file Legal Sex Female 7:40 PM JOINT MAKER MACHINE Gender Identity Not on file Sexual Orientation Not on file Obstetrics History Last Filed Vital Signs Vital Sign Reading Time Taken Comments Blood Pressure 132/82 05/07/2024 2:36 PM JOINT MAKER MACHINE Pulse 63 05/07/2024 2:36 PM JOINT MAKER MACHINE Temperature - - Respiratory Rate - - Oxygen Saturation 96% 05/07/2024 2:36 PM JOINT MAKER MACHINE Inhaled Oxygen Concentration - - Weight 134.3 kg (296 lb) 05/07/2024 2:36 PM JOINT MAKER MACHINE Height 172.7 cm (5' 8 ) 05/07/2024 2:36 PM JOINT MAKER MACHINE Body Mass Index 45.01 05/07/2024 2:36 PM JOINT MAKER MACHINE Plan of Treatment Health Maintenance Due Date Last Done Comments Breast Cancer Screening-Mammogram 1962 Cervical Cancer Screening 1962 Colon Cancer Screening-Colonoscopy 1962 Depression Screening 1962 Hepatitis C Screening 1962 Hepatitis B Screening 1980 Regular Well Visit/Exam 18-64 1980 Zoster Vaccine (1 of 2) 2012 DTaP/Tdap/Td Vaccine (2 - Td or Tdap) 01/12/2023 01/12/2013, 04/26/2004 Influenza Vaccine (Season Ended) 2024 12/14/2015, 01/13/2015, 12/10/2013, Additional history exists Pneumococcal vaccine <65 Aged Out 08/16/2016 No longer eligible based on patient's age to complete this topic Procedures Procedure Name Priority Date/Time Associated Diagnosis Comments POCT LIPID PANEL Routine 05/07/2024 2:30 PM JOINT MAKER MACHINE Lipid screening from Last 3 Months Results * POCT lipid panel (05/07/2024 2:30 PM JOINT MAKER MACHINE) Cholesterol, POC 219 mg/dL HDL, POC 45 mg/dL Triglycerides, POC 283 mg/dL LDL Cholesterol POC 117 mg/dL Chol/HDL Ratio, POC 4.9 Non-HDL Cholesterol, POC 174 mg/dL Cholesterol Total, POC 219 mg/dL Capillary blood 05/07/2024 2 :30 PM JOINT MAKER MACHINE Zeferino Garcia MD POINT OF CARE TEST ORDER FERMÍN Final Result from Last 3 Months Insurance [employer] Care Teams Bottom Saw Operator Relationship Specialty Start Date End Date Unknown, Notinfile PCP - General 09/07/23
--- OUTSIDE RECORDS SUMMARY | 2024-06-24 17:06 | XMS_ITS | Data Portability ---
Author Organization [place] [facility] [place], [id number]_ER_StVWomen Address [address] [place] [address] Care Team Providers Care Tool Inspector Name Role Phone STANTON SILVA Referring Provider JOLANTA WILDE Primary Care Provider [phone] Assessment Encounter Date Assessment Date Assessment LastModified by Organization Details LastModified Time 11/22/2016 11/22/2016 1 type 2 diabetes. Will have a current A1c, however she [facility] and they do all of her blood work. She is planning to have a new appointment next month and she will send me all the results. Microalbumin current, Pneumovax current, eye exam will be due in January and she will make an appointment. 2 hyperlipidemia. She still on the weight loss program and replied to repeat lipid panel next month. She will send me a copy of this. 3 vitamin D deficiency. Stable, no changes for now. 4 morbid obesity. She continued to follow the low-calorie weight loss plan that has been following [facility]. She was taking phentermine and is finishing the third month of it, however her blood pressure is elevated I will have decided to stop this medication today. 5 hypertension. Not controlled, however I will not change the medication for now unless he does not stabilize after she is off phentermine. I will see her back in 3 months. 6 right leg cellulitis. Resolved, however she still have a chronic ulcer. I will start colloid patch to speed of healing. She will call me if no improvement or signs of infection. Continue off antibiotic [email or web address] Not available 11/22/2016 09:27:44 10/26/2019 10/26/2019 Time spent with patient:____14__ __minutes. For Telephone Audio Only Visits: Have you been seen in the last 7 days for the same or similar condition by an [facility] provider? No I did not request that the patient schedule an appointment at the next available time as a result of this encounter. CPT CODES: TCM Assessment/Plan: New PCP at [facility] 11/11/2019 (Jolanta Wilde MD) [email or web address] Not available 10/26/2019 11:22:30 10/30/2019 10/30/2019 Time spent with patient:____18__ __minutes. For Telephone Audio Only Visits: Have you been seen in the last 7 days for the same or similar condition by an [facility] provider? Yes I did not request that the patient schedule an appointment at the next available time as a result of this encounter. CPT CODES: TCM (Scenario 3) Telephone with video and/or VPO/Virtual/AmWe ll/Google Mapittrackit/[employer].me (Scenario 2) --UHC, Humana, CIGNA, and Traditional Medicaid-- use the E&M codes with GT modifier (see above) --Other Commercial Payers/Uninsured /Medicare-- [id number] - (5-10 mins) Telephone Evaluation 51969 - (11-20 mins) Telephone Evaluation 80992 - (21+ mins) Telephone Evaluation Telephone Audio Only (Scenario 1) --Medicare/Unins ured-- G2012 - (5-10 mins) Telephone Evaluation G0071 - (5-10 mins) [facility](Rural) Telephone Evaluation Assessment/Plan: see below [email or web address] Not available 10/30/2019 16:16:55 Plan of Treatment Reminders Order Date Submit Date Provider Last Modified By Organization Details Last Modified Time Details Appointments None recorded. 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 specimen 2019 020 [email or web address] [facility] (Lab), [address] [facility] [place], [address], 0 08:55:51 urinalysis, dipstick 2018 019 [email or web address] Amg - In Office Orders (For Internal Use Only), [address] [facility], [place], [address], 9 11:05:09 Referral bariatric surgery referral 2020 021 [email or web address] 1 [place], [address] [facility], [address], [place], [address], 1 15:05:15 Procedures colonoscopy procedure (PROC) 2020 021 [email or web address] Asv - Surgery Scheduling - [facility], [address], [place], [address], 1 08:48:30 Surgeries None recorded. Imaging None recorded. Medication Orders Flomax 0.4 mg capsule 2018 [facility], [address] [place], [address], 0 10:42:27 Patient TargetsNo targets recorded. Patient Instructions Encounter Date Encounter Id Patient Instructions Last Modified By Organization Details Last Modified Time 10/11/2018 [id number] kidney stone: care instructions [email or web address] Not available 10/11/2018 11:05:09 10/26/2019 [id number] hand-washing: care instructions [email or web address] Not available 10/26/2019 11:29:58 What You Need To Know about COVID-19 Coronavirus Disease (CDC) Not available 10/26/2019 11:29:58 Steps To Help Prevent The Spread of COVID-19, if you are sick (CDC) [email or web address] Not available 10/26/2019 11:29:58 coronavirus (covid-19): care instructions [email or web address] Not available 10/26/2019 11:29:58 Reason for Referral Bariatric Surgery Referral f or Morbid obesity Referring Physician: Gogo Rojas, Gastroenterology, Encounter Date: 11/23/2020 Results Created Date Observation Date Name Description Value Unit Range Abnormal Flag Note LastModifiedBy Organization Detail LastModifiedTime 10/12/19 19 10/11/2018 urina lysis , dipst ick specific gravity 1.010 1.005 - 1.030 Not Available Amg - In Office Orders (For Internal Use Only) [address] [place] [address], [address], 10/11/2018 11:01:56 10/12/19 19 10/11/2018 urina lysis , dipst ick pH 7 5.0 - 9.0 Not Available Amg - In Office Orders (For Internal Use Only) [address] [place] [address], [address], 10/11/2018 11:01:56 10/12/19 19 10/11/2018 urina lysis , dipst ick leukocytes 1+ negati ve Not Available Amg - In Office Orders (For Internal Use Only) [address] [place] [address], [address], 10/11/2018 11:01:56 10/12/19 19 10/11/2018 urina lysis , dipst ick nitrite negati ve negati ve Not Available Amg - In Office Orders (For Internal Use Only) [address] [place] [address], [address], 10/11/2018 11:01:56 10/12/19 19 10/11/2018 urina lysis , dipst ick protein (mg/dL) trace negati ve Not Available Amg - In Office Orders (For Internal Use Only) [address] [place] [address], [address], 10/11/2018 11:01:56 10/12/1910/11/2018 urina lysis , dipst ick glucose (mg/dL) negati ve normal Not Available Amg - In Office Orders (For Internal Use Only) [address] [place] [address], [address], 10/11/2018 11:01:56 10/12/19 19 10/11/2018 urina lysis , dipst ick ketones negati ve negati ve Not Available Amg - In Office Orders (For Internal Use Only) [address] [place] [address], [address], 10/11/2018 11:01:56 10/12/19 19 10/11/2018 urina lysis , dipst ick urobilinogen (mg/dL) negati ve 0.2 - 1.0 Not Available Amg - In Office Orders (For Internal Use Only) [address] [place], [address], 10/11/2018 11:01:56 10/12/19 19 10/11/2018 urina lysis , dipst ick bilirubin negati ve negati ve Not Available Amg - In Office Orders (For Internal Use Only) [address] [place], [address], 10/11/2018 11:01:56 10/12/19 19 10/11/2018 urina lysis , dipst ick blood trace negati ve Not Available Amg - In Office Orders (For Internal Use Only) [address] [place], [address], 10/11/2018 11:01:56 01/06/20 21 01/05/2021 GLUCO SE POC glucose POC 121 mg/dL 65-99 high Testi ng by [facility] [address] [place] [address] [place] [address] Not Available Asv - Misys Lab - [facility] [address] [place] [address], [address], 01/05/2021 07:47:36 08/18/19 20 08/17/2019 physi rocio thera py repor t No observ ation record ed. [email or web address] [facility] ([facility] - Physical Therapy - Adult [place] [address], [place], [address], 08/19/2019 07:48:00 08/26/19 20 08/26/2019 physi rocio thera py repor t No observ ation record ed. INTERFACE [facility] ([facility]) - Physical Therapy - Adult [place] [address], [place], [address], 08/26/2019 08:25:35 09/07/19 20 09/07/2019 physi rocio thera py repor t No observ ation record ed. INTERFACE [facility] ([facility] - Physical Therapy - Adult [place] [address], [place], [address], 09/07/2019 15:40:48 09/07/19 20 09/07/2019 physi rocio thera py repor t No observ ation record ed. INTERFACE [facility] ([facility] - Physical Therapy - Adult [place] [address], [place], [address], 09/07/2019 15:40:54 09/16/19 20 09/16/2019 physi rocio thera py repor t No observ ation record ed. INTERFACE [facility] ([facility]) - Physical Therapy - Adult [place] [address], [place], [address], 09/16/2019 09:05:44 09/23/19 20 09/23/2019 physi rocio thera py repor t No observ ation record ed. INTERFACE [facility] ([facility]) - Physical Therapy - Adult [place] [address], [place], [address], 09/23/2019 08:32:24 10/07/19 20 10/07/2019 physi rocio thera py repor t No observ ation record ed. INTERFACE [facility] ([facility] - Physical Therapy - Adult [place] [address], [place], [address], 10/07/2019 15:05:58 10/07/19 20 10/07/2019 physi rocio thera py repor t No observ ation record ed. INTERFACE [facility] ([facility] - Physical Therapy - Adult [place] [address], [place], [address], 10/07/2019 15:06:04 10/14/19 20 10/14/2019 physi rocio thera py repor t No observ ation record ed. INTERFACE [facility] ([facility] - Physical Therapy - Adult [place] [address], [place], [address], 10/14/2019 08:25:57 10/28/19 US, echoc ardio gram, trans thora cic, compl ete, w/ color flow No observ ation record ed. [email or web address] Not Available 2019 14:56:55 11/20/19 20 11/20/2019 physi rocio thera py repor t No observ ation record ed. INTERFACE [facility] ([facility]) - Physical Therapy - Adult [place] [address], [place], [address], 11/20/2019 13:31:04 02/17/20 20 US, echoc ardio gram, trans thora cic, compl ete, w/ color flow No observ ation record ed. [email or web address] Not Available 2019 12:40:28 01/06/20 21 01/05/2021 colon oscop y No observ ation record ed. [facility] [address], [address], 01/05/2021 12:00:14 Result Notes None recorded. Problems Name Problem SNOMED Code Status Onset Date Resolution Date Notes Provider Name and Address Organization Details Recorded Time Pain in limb 56042242 Completed 201301/13/2014 Kanika shane [place] [facility] 6 19:26:44 Injury of shoulder region 040508280 Active 2013 Kanika shane [facility] 6 19:26:44 Hypothyr oidism 10432386 Active 2013 LAST ASSESSED : 05 NOV 2013 10:14AM; TYPE: CHRONIC; LAST EDITED: 05 NOV 2013 10:29AM; STATUS: ACTIVE Kanika shane IN [facility] 6 19:26:44 Vitamin D deficien cy 57653552 Active 2013 LAST ASSESSED : 05 NOV 2013 10:14AM; TYPE: CHRONIC; LAST EDITED: 05 NOV 2013 10:29AM; STATUS: ACTIVE Kanika shane IN [facility] 6 19:26:44 Morbid obesity 547470838 Active 2013 LAST ASSESSED : 05 NOV 2013 10:29AM; TYPE: CHRONIC; IDENTIFI ED BY: DONNELL READ; LAST EDITED: 05 NOV 2013 10:29AM; STATUS: ACTIVE Debre Mehul null, [place] [facility] 6 19:26:44 Anxiety disorder 630329306 Active Debre Mehul null, [place] [facility] 6 19:26:44 Type 2 diabetes mellitus without complica tion 324223018 Completed 01/07/2014 Kim Dowell PASTRYCOOK [address], [address], [facility], [address] [facility] IN [facility] 0 10:51:24 Hyperlip idemia 45823909 Active 2013 LAST ASSESSED : 05 NOV 2013 10:23AM; TYPE: CHRONIC; LAST EDITED: 05 NOV 2013 10:29AM; STATUS: ACTIVE Debre Mehul null, [place] [facility] 6 19:26:44 Vitamin B12 deficien cy (non anemic) 55519572 Active Debre Mehul null, [place] [facility] 6 19:26:44 Insomnia 195164602 Active Debre Mehul null, [place] [facility] 6 19:26:44 Adjustme nt disorder 47543676 Active Debre Mehul null, [place] [facility] 6 19:26:44 Edema 098167391 Active 2013 LAST ASSESSED : 05 NOV 2013 10:23AM; TYPE: CHRONIC; IDENTIFI ED BY: DONNELL READ; LAST EDITED: 05 NOV 2013 10:29AM; STATUS: ACTIVE Debre Mehul null, [place] [facility] 6 19:26:44 Gout 82863900 Active 2013 LAST ASSESSED : 05 NOV 2013 10:22AM; TYPE: CHRONIC; LAST EDITED: 05 NOV 2013 10:29AM; STATUS: ACTIVE Debre Mehul null, [place] [facility] 6 19:26:44 Metaboli c syndrome X 158984484 Active on metformi n Debre Mehul null, [place] [facility] 6 19:26:44 Chronic follicul itis 224821438 Active keflex Debre Mehul null, [place] [facility] 6 19:26:44 Acute viral bronchit is 520040667 Active Kanika shane, [facility] 6 19:26:44 Intestin al malabsor ption 860062643 Active 2013 LAST ASSESSED : 05 NOV 2013 10:22AM; TYPE: CHRONIC; IDENTIFI ED BY: DONNELL READ; LAST EDITED: 05 NOV 2013 10:29AM; STATUS: ACTIVE Kanika shane, [facility] 6 19:26:44 Disorder of hair AND/OR hair follicle Active 2013 LAST ASSESSED : 05 NOV 2013 10:22AM; TYPE: ACUTE; IDENTIFI ED BY: DONNELL READ; LAST EDITED: 05 NOV 2013 5:43PM; STATUS: ACTIVE Kanika shane, [facility] 6 19:26:44 Respirat ory finding 818058087 Completed 201307/08/2014 LAST ASSESSED : 05 NOV 2013 10:22AM; TYPE: CHRONIC; IDENTIFI ED BY: DONNELL READ; LAST EDITED: 05 NOV 2013 10:29AM; STATUS: ACTIVE Kanika shane, [facility] 6 19:26:45 Impaired fasting glycemia 177388514 Active 2013 LAST ASSESSED : 05 NOV 2013 10:24AM; TYPE: CHRONIC; IDENTIFI ED BY: DONNELL READ; LAST EDITED: 05 NOV 2013 10:29AM; STATUS: ACTIVE Kanika shane, [facility] 6 19:26:44 Administ ration of diphther ia, pertussi s, and tetanus vaccine Active 2013 LAST ASSESSED : 05 NOV 2013 10:14AM; TYPE: CHRONIC; IDENTIFI ED BY: DONNELL READ; LAST EDITED: 05 NOV 2013 10:29AM; STATUS: ACTIVE Kanika shane, [facility] 6 19:26:45 Benign essentia l hyperten karen 7709498 Active 2013 LAST ASSESSED : 05 NOV 2013 9:28AM; TYPE: CHRONIC; LAST EDITED: 05 NOV 2013 5:43PM; STATUS: ACTIVE Kanika shane, [place] [facility] 6 19:26:44 Anemia 730830412 Active 2013 LAST ASSESSED : 05 NOV 2013 10:22AM; TYPE: CHRONIC; IDENTIFI ED BY: DONNELL RAED; LAST EDITED: 05 NOV 2013 10:29AM; STATUS: ACTIVE Kanika Carver null, [place] [facility] 6 19:26:44 Low back pain 705399706 Active 2013 LAST ASSESSED : 05 NOV 2013 10:37AM; TYPE: ACUTE; LAST EDITED: 05 NOV 2013 10:37AM; STATUS: ACTIVE Debre Mehul null, [place] [facility] 6 19:26:44 Menopaus al symptom 72940890 Active 2013 LAST ASSESSED : 05 NOV 2013 10:22AM; TYPE: CHRONIC; IDENTIFI ED BY: DONNELL READ; LAST EDITED: 05 NOV 2013 10:29AM; STATUS: ACTIVE Fransicoe Mehul null, [place] [facility] 6 19:26:44 Hip pain 44059188 Active 2013 LAST ASSESSED : 05 NOV 2013 10:39AM; TYPE: ACUTE; LAST EDITED: 05 NOV 2013 5:46PM; STATUS: ACTIVE Debre Mehul null, [place] [facility] 6 19:26:44 Hypothyr 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 tis 760999077 Active Debre Mehul null, [place] [facility] 6 19:26:44 Impaired glucose toleranc e 8166179 Active Debre Mehul null, [place] [facility] 6 19:26:44 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 Debre Mehul null, [place] [facility] 6 19:26:44 Polyp of colon 94185215 Active Debre Mehul null, [place] [facility] 6 19:26:44 Deep venous thrombos is of lower extremit y 520246018 Active Debre Mehul null, [place] [facility] 6 19:26:44 Foot pain 56276787 Active Debre Mehul null, [place] [facility] 6 19:26:44 Type 2 diabetes mellitus 79296687 Active Kan[place], [place] - [facility] 6 19:26:44 Carpal tunnel syndrome 22757584 Active Kan[place] Carver [place], [place] [facility] 6 19:26:44 SARS-CoV -2 Active 2019 Kim Dowell PASTRYCOOK [address], [address], [place], [address], [place] [facility] 0 10:51:21 Acute hypoxemi c respirat ory failure 293666735 Active 2019 Kim Dowell PASTRYCOOK [address], [address], [place], [address], [place] [facility] [place] 0 10:51:23 Type 2 diabetes mellitus without complica tion 362784631 Active 2019 Kim Dowell PASTRYCOOK [address], [address], [place], [address], [place] [facility] [place] 0 10:51:24 Dependen ce on suppleme ntal oxygen 42646479605 7 Active 2019 Kim Dowell PASTRYCOOK [address], [address], [place], [address], [place] [facility] [place] 0 10:51:27 History of deep vein thrombos is 702122716 Active 2019 Kim Dowell PASTRYCOOK [address], [address], [place], [address], [place] [facility] [place] 0 10:51:29 Health educatio n given 831781139 Active 2019 Kim Dowell PASTRYCOOK [address], [address], [place], [address], [place] [facility] [place] 0 11:29:50 Notes:11/05/2013: Hyperlipid emia (272.4) Last Assessed: 05 Nov 2013 10:23AM; Type: Chronic; Last Edited: 05 Nov 2013 10:29AM; Status: Active Hypothyroidism (244.9) Last Assessed: 05 Nov 2013 10:14AM; Type: Chronic; Last Edited: 05 Nov 2013 10:29AM; Status: Active Malabsorption Syndrome (579.9) Last Assessed: 05 Nov 2013 10:22AM; Type: Chronic; Identified By: DONNELL READ; Last Edited: 05 Nov 2013 10:29AM; Status: Active Anemia (285.9) Last Assessed: 05 Nov 2013 10:22AM; Type: Chronic; Identified By: DONNELL READ; Last Edited: 05 Nov 2013 10:29AM; Status: Active Problem Notes None recorded. Procedures Surgical History Date Name Laterality Status Provider Name and Address Organization Details Recorded Time 12/02 Date of Last Colonoscopy completed Ruchi Sue SPA ASSISTANT MANAGER IN [facility] 7 16:01:50 12/02 Colonoscopy completed Ruchi Sue SPA ASSISTANT MANAGER IN [facility] 7 13:45:17 07/21 ESOPHAGOGASTRODUODENOSCO PY (SURG) completed Mayela [place] - [facility] 5 14:33:05 03/04 Most Recent Mammogram completed Ruchi Sue SPA ASSISTANT MANAGER IN [facility] 7 13:45:57 03/04 Date of Last Pap Smear completed Ruchi Sue SPA ASSISTANT MANAGER IN [facility] 7 13:46:00 Caesarean Section completed Jeaneth casiano MEAT PROCESSOR [place] - [facility] 4 09:20:53 Cholecystectomy completed Jeaneth fernandez MEAT PROCESSOR [place] - [facility] 4 09:20:53 Tubal Ligation completed Jeaneth Hawkins ins MEAT PROCESSOR IN [facility] 4 09:20:53 Imaging Results Imaging Date Name Status LastModified by Swapnil bryan Details LastModified Time 08/17/2019 physical therapy report completed [email or web address] [facility] ([facility] - Physical Therapy - Adult [place] [address], [place], [address], 08/19/2019 07:48:00 08/26/2019 physical therapy report completed INTERFACE [facility] ([facility]) - Physical Therapy - Adult [place] [address], [place], [address], 08/26/2019 08:25:35 09/07/2019 physical therapy report completed INTERFACE [facility] - Physical Therapy - Adult [place] [address], [place], [address], 09/07/2019 15:40:48 09/07/2019 physical therapy report completed INTERFACE [facility] ([facility] - Physical Therapy - Adult [place] [address], [place], [address], 09/07/2019 15:40:54 09/16/2019 physical therapy report completed INTERFACE [facility] - Physical Therapy - Adult [place] [address], [place], [address], 09/16/2019 09:05:44 09/23/2019 physical therapy report completed INTERFACE [facility] ([facility] - Physical Therapy - Adult [place] [address], [place], [address], 09/23/2019 08:32:24 10/07/2019 physical therapy report completed INTERFACE [facility] ([facility] - Physical Therapy - Adult [place] [address], [place], [address], 10/07/2019 15:05:58 10/07/2019 physical therapy report completed INTERFACE [facility] ([facility] - Physical Therapy - Adult [place] [address], [place], [address], 10/07/2019 15:06:04 10/14/2019 physical therapy report completed INTERFACE [facility] ([facility] - Physical Therapy - Adult [place] [address], [place], [address], 10/14/2019 08:25:57 10/28/2019 US, echocardiogram, transthoracic, complete, w/ color flow completed [email or web address] Information not available 10/28/2019 14:56:55 11/20/2019 physical therapy report completed INTERFACE [facility] ([facility] - Physical Therapy - Adult [place] [address], [place], [address], 11/20/2019 13:31:04 02/17/2020 US, echocardiogram, transthoracic, complete, w/ color flow completed [email or web address] Information not available 02/17/2020 12:40:28 01/05/2021 colonoscopy completed [facility] [address], [place], [address], 01/05/2021 12:00:14 Procedure Notes None recorded. Medical Equipment None Reported. Allergies No known drug allergies Medications Name Sig Start Date Stop Date Status Note LastModified by Organization Details LastModified Time freestyle karina litefrees tyle lite test strips 07/06 completed Not Available Not Available Not Available Prescript ion - Clarifica tion 10/25 completed METFORMI N Not Available Not Available Not Available [facility]g 10/25 completed Not Available Not Available Not Available [facility] 07/06 completed Not Available Not Available Not Available freestyle karina lite 07/06 completed Not Available Not Available Not Available celecoxib 200 mg capsule TAKE 1 CAPSULE BY MOUTH EVERY DAY active Not Available Not Available No t Available furosemid e 40 mg tablet take 1 tab daily 10/11 completed Not Available Not Available Not Available metformin 500 mg tablet TAKE 2 TABLETS BY MOUTH TWO TIMES A DAY WITH morning and evening MEALS active Not Available Not Available No t Available Qvar 80 mcg/actua tion Metered Aerosol oral inhaler Inhale 1 puff twice a day by inhalati on route. 05/06 completed Not Available Not Available Not Available levothyro xine 175 mcg tablet TAKE 1 TABLET BY MOUTH EVERY DAY active Not Available Not Available No t Available paroxetin e 10 mg tablet Take 1 tablet every day by oral route. 01/07 completed increase d dose to 20mg daily Not Available Not Available Not Available clindamyc in HCl 300 mg capsule TAKE 1 CAPSULE BY MOUTH THREE TIMES A DAY FOR 10 DAYS 10/29 completed Not Available Not Available Not Available atorvasta tin 10 mg tablet TAKE 1 TABLET BY MOUTH IN THE EVENING 08/16 completed Not Available Not Available Not Available azithromy nicole 250 mg tablet TAKE 2 TABLETS (500 MG) BY ORAL ROUTE ONCE DAILY FOR 1 DAY THEN 1 TABLET (250 MG) BY ORAL ROUTE ONCE DAILY FOR 4 DAYS 05/17 completed Not Available Not Available Not Available ibuprofen 800 mg tablet TAKE 1 TABLET BY MOUTH THREE TIMES A DAY WITH FOOD active Not Available Not Available No t Available benzonata te 200 mg capsule Take 1 capsule 3 times a day by oral route for 10 days. 05/17 completed Not Available Not Available Not Available hydrochlo rothiazid e 50 mg tablet 01/06 completed Not Available Not Available Not Available hydrocodo ne 5 mg-acetam inophen 325 mg tablet 10/29 completed Not Available Not Available Not Available lisinopri l 20 mg tablet TAKE 1 TABLET BY MOUTH ONE TIME A DAY 10/11 completed Not Available Not Available Not Available Ultram 50 mg tablet Take 1 tablet every 6 hours by oral route. 07/06 completed Not Available Not Available Not Available phentermi ne 37.5 mg tablet TAKE 1 TABLET BY MOUTH ONE TIME A DAY 10/11 completed Not Available Not Available Not Available warfarin 4 mg tablet Take 1 tablet every day by oral route. 07/06 completed Taking 9mg daily Not Available Not Available Not Available ketorolac 10 mg tablet active Not Available Not Available Not Available levothyro xine 75 mcg tablet TAKE 2 TABLETS BY MOUTH EVERY DAY active Not Available Not Available No t Available oxycodone -acetamin ophen 5 mg-325 mg tablet TAKE 1 TABLET BY MOUTH EVERY FOUR HOURS NEEDED FOR PAIN active Not Available Not Available No t Available citalopra m 20 mg tablet 05/06 completed Not Available Not Available Not Available potassium chloride ER 20 mEq tablet,ex tended release(p art/cryst ) take 1 tab daily 10/11 completed Not Available Not Available Not Available oxycodone -acetamin ophen 10 mg-325 mg tablet active Not Available Not Available Not Available tamsulosi n 0.4 mg capsule Take 1 capsule every day by oral route for 5 days. 10/25 completed Not Available Not Available Not Available benzonata te 100 mg capsule TAKE 1 CAPSULE BY MOUTH TWO TIMES A DAY active Not Available Not Available No t Available levothyro xine 50 mcg tablet TAKE 1 TABLET BY MOUTH ONE TIME A DAY, take with 600mcg daily for total daily dose of 650mcg 10/25 completed Not Available Not Available Not Available hydrocodo ne 7.5 mg-acetam inophen 325 mg tablet 10/29 completed Not Available Not Available Not Available cephalexi n 500 mg capsule TAKE 1 CAPSULE BY MOUTH FOUR TIMES A DAY UNTIL GONE active Not Available Not Available No t Available paroxetin e 20 mg tablet Take 1 tablet every day by oral route. 05/06 completed Not Available Not Available Not Available warfarin 2 mg tablet Take 2 daily as directed 07/06 completed Not Available Not Available Not Available levothyro xine 150 mcg tablet TAKE 1 TABLET BY MOUTH EVERY DAY active Not Available Not Available No t Available gabapenti n 300 mg capsule TAKE 1 CAPSULE BY MOUTH THREE TIMES A DAY active Not Available Not Available No t Available enoxapari n 150 mg/mL subcutane ous syringe INJECT 150 MG (1 ML) TWICE DAILY OR DIRECTED BY PROVIDER active Not Available Not Available No t Available allopurin ol 300 mg tablet take 1 tab daily 07/06 completed Not Available Not Available Not Available levothyro xine 200 mcg tablet TAKE 1 TABLET BY MOUTH EVERY DAY active Not Available Not Available No t Available zaleplon 10 mg capsule TAKE 1 CAPSULE BY MOUTH AT BEDTIME active Not Available Not Available No t Available furosemid e 20 mg tablet TAKE 1 TABLET BY MOUTH EVERY DAY NEEDED active Not Available Not Available No t Available ergocalci ferol (vitamin D2) 1,250 mcg (50,000 unit) capsule take 1 capsule by mouth 2 times every week active Not Available Not Available No t Available zaleplon 5 mg capsule Take 1 capsule every day by oral route at bedtime for 30 days. 07/06 completed Not Available Not Available Not Available Cheratuss in AC 10 mg-100 mg/5 mL oral liquid Take 10 mL every 6 hours by oral route as needed. 03/15 completed Not Available Not Available Not Available ibuprofen 600 mg tablet 10/29 completed Not Available Not Available Not Available lovastati n 20 mg tablet take one tablet by mouth at bedtime 05/06 completed Not Available Not Available Not Available hydrocodo ne 10 mg-chlorp heniramin e 8 mg/5 mL oral susp extend.re l 12hr Take 5 mL every 12 hours by oral route for 10 days. 05/17 completed Not Available Not Available Not Available OxyContin 10 mg tablet,ex tended release Take 1 tablet every 12 hours by oral route. 07/06 completed Not Available Not Available Not Available metformin ER 500 mg tablet,ex tended release 24 hr TAKE 2 TABLETS BY MOUTH TWO TIMES A DAY WITH MEALS active Not Available Not Available No t Available amoxicill in 500 mg-potass ium clavulana te 125 mg tablet TAKE 1 TABLET BY MOUTH TWO TIMES A DAY FOR 14 DAYS active Not Available Not Available No t Available oxycodone 5 mg tablet 1 tab po qd 4h prn pain active Not Available Not Available No t Available enoxapari n 80 mg/0.8 mL subcutane ous syringe USE DAILY DIRECTED active Not Available Not Available No t Available enoxapari n 100 mg/mL subcutane ous syringe 10/29 completed Not Available Not Available Not Available enoxapari n 40 mg/0.4 mL subcutane ous syringe 10/29 completed Not Available Not Available Not Available Jantoven 1 mg tablet TAKE 1 TABLET BY MOUTH DAILY DIRECTED BY PROVIDER active Not Available Not Available No t Available Jantoven 2.5 mg tablet TAKE 1 TABLET BY MOUTH EVERY DAY DIRECTED active Not Available Not Available No t Available Jantoven 5 mg tablet TAKE 1 TO 2 TABLETS BY MOUTH DAILY DIRECTED BY PROVIDER active Not Available Not Available No t Available nitrofura ntoin monohydra te/macroc rystals 100 mg capsule TAKE 1 CAPSULE BY MOUTH TWO TIMES A DAY FOR 10 DAYS FOR BLADDER INFECTIO N active Not Available Not Available No t Available fenofibra te 160 mg tablet TAKE 1 TABLET BY MOUTH EVERY DAY active Not Available Not Available No t Available chlorhexi dine gluconate 0.12 % mouthwash 10/29 completed Not Available Not Available Not Available levothyro xine 350mcg po qd active Not Available Not Available No t Available metformin ER 500 mg 24 hr tablet,ex tended release (gastric retention ) Take 1 tablet twice a day by oral route. active Not Available Not Available No t Available FreeStyle Lite Strips use to test blood sugar once daily 10/25 completed Not Available Not Available Not Available oxycodone 10 mg tablet Take 1 tablet every 4 hours by oral route. 07/06 completed Not Available Not Available Not Available Tirosint 100 mcg capsule TAKE 2 CAPSULES BY MOUTH ONCE DAILY. 12/15/ 2015 05/05 /2016 completed Not Available Not Available Not Available Tirosint 150 mcg capsule TAKE 2 CAPSULE (150 MCG) BY ORAL ROUTE ONCE DAILY IN ADDITION TO THE 100 MCG TABLETS 07/06 completed Not Available Not Available Not Available vancomyci n 2 gram/250 mL in 0.9 % sodium chloride intraveno us solution Infuse 250 mL every 12 hours by intraven ous route. 07/06 completed Not Available Not Available Not Available cyanocoba izabela (vit B-12) 2,500 mcg sublingua l lozenge take 1 tab SL daily 2013 active Not Available Not Available Not Avai lable Flucelvax Quad (PF) 60 mcg (15 mcg x 4)/0.5 mL IM syringe ADMINIST ER VACCINE PER PHYSICIA N PROTOCOL 10/11 completed Not Available Not Available Not Available Ozempic 1 mg/dose (2 mg/1.5 mL) subcutane ous pen injector INJECT 1 MG SUBCUTAN EOUSLY ONCE WEEKLY ON SAME DAY; INJECT IN ABDOMEN, THIGHS, OR UPPER ARM ROTATING INJECTIO N SITES active Not Available Not Available No t Available Flucelvax Quad (PF) 60 mcg (15 mcg x 4)/0.5 mL IM syringe INJECT ONE INFLUENZ A VACCINE PER PROTOCOL 10/25 completed Not Available Not Available Not Available Ozempic 1 mg/dose (4 mg/3 mL) subcutane ous pen injector INJECT 1MG SUBCUTAN EOUSLY ON THE SAME DAY EVERY WEEK, INJECT INTO ABDOMEN, THIGH OR UPPER ARM active Not Available Not Available No t Available Vitals Date Recorded Body weight Heart rate Respiratory rate Oxygen saturation Oxygen saturation in Arterial blood by Pulse oximetry Body temperature Systolic blood pressure Diastolic blood pressure Provider Name and Address Organization Details Last Updated DateTime 9 632782. 67 g 84 /min 16 /min 98 % 98 % 97.8 [degF] 126 mm[Hg] 80 mm[Hg] Lilian Lara [facility] [place] [facility] 9 10:31:35 Date Recorded Pain severity - 0-10 verbal numeric rating [Score] - Reported Provider Name and Address Organization Details Last Updated DateTime 10/30/2019 0 Vesta Kennedy [facility] 10/30/2019 15:16:50 Date Recorded Body weight Heart rate Oxygen saturation Oxygen saturation in Arterial blood by Pulse oximetry Systolic blood pressure Diastolic blood pressure Provider Name and Address Organization Details Last Updated DateTime 1 360574. 56 g 78 /min 96 % 96 % 138 mm[Hg] 78 mm[Hg] Christy FUENTES [facility] 1 08:30:22 Date Recorded Body height Body mass index (BMI) Body weight Heart rate Oxygen saturation Oxygen saturation in Arterial blood by Pulse oximetry Systolic blood pressure Diastolic blood pressure Provider Name and Address Organization Details Last Updated DateTime 7 175.26 cm 49.2 kg/m2 394285. 26 g 61 /min 98 % 98 % 152 mm[Hg] 82 mm[Hg] Ruchi Harttrevor jair LOZOYA [facility] 7 09:00:13 Social History Question Answer Notes LastModified by Organizat ion Details LastModified Time Tobacco Smoking Status Former Smoker quit about 1991 Madelin Jenkins RN null, [facility] 07/07/2015 11:20:27 What Is Your Level Of Alcohol Consumption? None 2 Per Month [email or web address] Information not available 08/16/2016 What Type Of Diet Are You Following? REGULAR Information not available 01/07/2014 Do You Or Have You Ever Used E-cigarettes Or Vape? 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 16+yearssincel brady [email or web address] Information not available 10/23/2019 Marital Status [email or web address] Informatio n not available 01/07/2014 What Was The Date Of Your Most Recent Tobacco Screening? 10/26/2019 [email or web address] Information not available 10/26/2019 Seat Belts Used Routinely Yes [email or web address] Information not available 01/07/2014 Do You Or Have You Ever Used Smokeless Tobacco? Never Used Smokeless Tobacco [email or web address] Information not available 10/23/2019 General Stress Level Medium Information not available 01/07/2014 Sex: Female Functional Status None recorded. Mental Status None recorded. Family History Relationship Description Onset Age of this Age Resolved Age Notes LastModified by Organization Details LastModified Time Father Hyperlipidem ia [email or web address] Not available 2015 19:27:27 Father Heart disease [email or web address] Not available 2015 19:27:27 Notes:Daughter with autoimmu ne hypothyroid, also mother and grandmother with hypothyroid; 3 children with RA - strong history of autoimmune; mother also with myasthenia gravis Medical History Condition Response hypothyroidism Y other musculoskeletal issue Y diabetes mellitus Y deep vein thrombosis Y obesity Y Gynecological History Statement/Question Response If Post Menopausal, Age at Menopause 51 Date of Last Colonoscopy 12/02/2014 Date of LMP Date and Result of Last Bone Density Date of Last Pap Smear 03/04/2006 Most Recent Mammogram 03/04/2011 Hormone Replacement Therapy N Obstetrics History GPAL:G 0 P 0 0 0 0 Immunizations Vaccine Type Date Status Note Provider Nam e and Address Organization Details Recorded Time influenza, unspecified formulation 12/11/19 14 completed Ruchi Sue SPA ASSISTANT MANAGER null, [place] [facility] 11/22/2016 08:46:56 influenza, unspecified formulation 12/14/19 16 completed Ruchi Sue SPA ASSISTANT MANAGER [place], [place] [facility] 11/22/2016 08:46:56 Tdap 01/13/20 13 completed Not Available [facility] 04/04/2019 02:13:54 Influenza, split virus, trivalent, preservative 01/05/20 09 completed Not Available [facility] 04/04/2019 02:13:54 Influenza, split virus, trivalent, preservative 01/13/20 06 completed Kamijinny Nicole MEAT PROCESSOR [place], [place] [facility] [place] 03/15/2016 11:37:05 Hep A, adult 02/12/20 07 completed Kami Scottman MEAT PROCESSOR null, [place] [facility] 03/15/2016 11:37:05 Influenza, split virus, trivalent, PF 12/13/19 06 completed Not Available [facility] 04/04/2019 02:13:54 meningococcal MCV4P 08/15/19 06 completed Kami Nicole MEAT PROCESSOR null, [place] [facility] [place] 03/15/2016 11:37:05 Hep A, adult 08/09/19 06 completed Not Available [facility] 04/04/2019 02:13:54 Influenza, split virus, trivalent, preservative 01/14/20 15 completed Kami Nicole MEAT PROCESSOR null, [place] [facility] [place] 03/15/2016 11:37:05 Td (adult), 2 Lf tetanus toxoid, preservative free, adsorbed 04/26/19 05 completed Not Available [facility] 04/04/2019 02:13:54 Novel [id number] 12/24/19 09 completed Kami Nicole MEAT PROCESSOR [place], [place] [facility] [place] 03/15/2016 11:37:05 Influenza, split virus, trivalent, preservative 12/11/19 14 completed Kami Nicole MEAT PROCESSOR [place], [place] [facility] [place] 03/15/2016 11:37:05 Influenza, split virus, quadrivalent, PF 12/14/19 16 completed Ruchi Sue SPA ASSISTANT MANAGER [place], [place] [facility] [place] 08/16/2016 13:39:53 pneumococcal polysaccharide PPV23 08/17/19 17 completed Not Available [facility] 03/21/2019 02:55:41 Past Encounters Encounter ID Performer Location Encounter Start Date Encounter Closed Date Diagnosis/Indication Diagnosis SNOMED-CT Code Diagnosis ICD10 Code Diagnosis Note [id number] Samuel Lemos RN IND_SMG_P CZ_DOC [address] [facility] [place] [address] 01/07/2014 09:06:54 01/07/2014 10:29:49 Vitamin D deficiency 16391133 change from ergo to otc vit D3 7947-0084 units daily Morbid obesity 557591422 wt down 9# since last visit gave her names of bariatric surgeons at [place] Hypothyroidism 88304191 refer to endo for eval- on extremely high doses of levothyrox ine Vitamin B1 2 deficiency (non anemic) 41995483 start SL B12 Insomnia 488061160 f/u s [facility] study Adjustment disorder 72319180 f/u 1-2 mos Edema 254279223 due to obesity--? pio with pulm htn Lasix prn with kdur Gout 35560115 stable - no change in meds Hyperlipidemia 94565516 has been stable Metabolic syndrome X 700262796 enc wt loss cont metformin, tricor Chronic folliculitis 447901376 cont keflex [id number] Gilmar Raymond MD IND_SMG_M UC_DOC [address] [place] [address] 02/02/2014 12:11:38 05/16/2015 22:36:30 [id number] Christa Gilbert CINTIA IND_SMG_M UC_DOC [address] [place] [address] 02/02/2014 13:12:12 02/02/2014 15:06:39 Acute viral bronchitis 375368773 [id number] Meghan Jovel IND_SMG_P CZ_DOC [address] [place] [address] 05/06/2014 09:47:08 05/06/2014 11:42:15 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 She is morbidly obese, which changes the volume of distributi on, making higher dosage requiremen t more likely, however this dose is higher than expected for that issue. She may have some malabsorpt ion. Assessment for celiac disease was negative. She clearly has malabsorpt ion due to the high doses of vitamin D (50,000 twice weekly) required to maintain her vitamin D in the normal range. Will try Tirosint, starting at 450 mcg daily which is a dosage reduction from 600 mcg of LT4, and if she feels fine she may increase to 600 mcg after one week. We will check TSH for new baseline and repeat in 6 weeks. Will refer to GI for evaluation of malabsorpt ion, especially in light of her interest in bariatric surgery in the future. Impaired g lucose tolerance 7853506 per pt request, will check a1c. She has been on metformin. Morbid obesity 973883858 [id number] Kanika Carver IND_SMG_G AS__D [facility] [address] [facility] [address], [address] [facility] [place] [address] 07/08/2014 08:03:29 07/08/2014 09:51:12 Vitamin D deficiency 76421522 Despite yrs of supplement ation she has issues of low normal vit D levels as well as difficult to control thyroid disease which has raised question of malabsorpt ion. No GI symptoms of malabsorpt ion and neg celiac panel in past. I do believe the below tests are appropriat e to proceed with for further eval for malabsorpt ion due to the strong family hx of autoimmune disease as well as personal hx of hypothyroi d and numerous miscarrige s. If below testing is unremarkab le then agree with referral to surgeon for eval for gastric bypass and further malabsorpt ion work up per them as they deem appropriat e. Hypothyroidism 75616294 cont synthroid per PCP Screening for malignant neoplasm of colon 032690154 She has never had a colonoscop y before so will schedule with anesthesia [id number] Gogo Rojas, DO IND_SMG_G __ [address] [facility], [address] [place] [address] 10/01/2014 14:51:20 10/01/2014 15:32:43 Submucosal tumor of gastrointestinal tract 453055786 Two small submucosal nodules of TI. Will proceed initially with CT abd and pelvis and chromagran in A level. if these are normal then will proceed with octreotide scan. follow up will be based on above results Polyp of colon 38470315 repeat colonoscop y 3 yrs, 07/19. Vitamin D deficiency 21296849 No evidence of malabsorpt ion disorder on testing. From GI standpoint do not see any contraindi cation to gastric bypass. 07/08/14 - Despite yrs of supplement ation she has issues of low normal vit D levels as well as difficult to control thyroid disease which has raised question of malabsorpt ion. No GI symptoms of malabsorpt ion and neg celiac panel in past. I do believe the below tests are appropriat e to proceed with for further eval for malabsorpt ion due to the strong family hx of autoimmune disease as well as personal hx of hypothyroi d and numerous miscarrige s. If below testing is unremarkab le then agree with referral to surgeon for eval for gastric bypass and further malabsorpt ion work up per them as they deem appropriat e. [id number] IND_SMG_C [facility] [address] [facility] [address] [place] [address] 05/30/2013 00:00:00 [id number] IND_SMG_C [facility]OW[facility] [address] [facility] [place] [address] 11/05/2013 00:00:00 [id number] Gaby Stroud IND_SMG_P CZ_DOC [address] [place] [address] 12/03/2014 10:57:50 12/03/2014 12:08:11 Hypothyroidism 57161542 E03.9 Not controlled . She has an appt with Dr Connell to adjust treatment. Metabolic syndrome X 237 552605 E88.81 SHe has pending cleareance from GI to see bariatric surgeon. SHe has an order for an abdominal CT to work up a nodule noticed in her duodenum during EGD. Hyperlipidemia 69917307 E78.5 I will repeat lipid panel. Mostly uncontroll ed due to her hyppothyro idism Deep venou s thrombosis of lower extremity 077901456 I82.412 INR is on goal and we will continue same and recheck in 2 weeks. Home care has been following her INR. Foot pain 02536867 M79.6 72 It may be only soft tissue for nicolasa way she has been doing some walk. However because all the complicati on she had I will get a foot XR. If normal only pain control and wait. 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 She is taking Tirosint 500mcg daily, 150mcg X2 and 100mcg X2 She had missed multiple doses prior to being hospitaliz ed. Has not missed any doses recently. She feels about the same, still recovering from 3 week hospitaliz ation for sepsis. She is still on IV vancomycin at home. She has not completed the GI work up yet, she is scheduled for CT of abd. this week. repeating TSH today. RTC in [address] Connell. Impaired g lucose tolerance 2858319 R73.02 A1c 7.2 in Nov. while in the hospital for Sepsis. She is currently only taking metformin 500mg BID, encouraged to increase to 1000mg BID. She will f/u with Dr. Pena Morbid obesity 556601065 E66.01 [id number] Gogo Rojas, IND_SMG_G AS_86th_D OC [address] [facility], [address] [place] [address] 02/04/2015 09:11:24 02/04/2015 10:22:53 Submucosal tumor of gastrointestinal tract 709740224 D49.0 Two small submucosal nodules of TI. CT abd and pelvis and chromagran in A level normal. Will proceed with octreotide scan. If octreotide scan normal then will consider repeat colonoscop y earlier then 3 yrs to assess if nodules increasing in size. Follow up in 2 months Polyp of colon 83557448 K63.5 repeat colonoscop y 3 yrs, 07/19, if not sooner to reeval TI submucosal nodules. [id number] Akshat Andres MD IND_SMG_P CZ_DOC [address] [place] [address] 07/07/2015 10:55:33 07/07/2015 12:30:02 Deep venous thrombosis of lower extremity 851376218 I82.412 Mostly recurrence of DVT. I will send her for doppler STAT and if positive consider to start Xarelto. Hypothyroidism 01695161 E03.9 Follow by endo I will get labs today. Type 2 gabriela betes mellitus 06922925 E11.9 I will repeat A1C, mostly I will get her back to Metformin Vitamin D deficiency 347 22339 E55.9 Repeat levels today Carpal agustina vicente syndrome 60958101 G56.00 I will send her to see hand surgery. [id number] Dustin Fabian MD IND_SMG_M UC_DOC [address] [facility] [address] [place] [address] 10/24/2015 19:18:16 10/24/2015 19:54:14 Acute viral bronchitis 234524225 J20.8 [id number] Akshat Andres MD IND_SMG_P CZ_DOC [address] [place] [address] 03/15/2016 11:10:04 03/15/2016 12:11:18 Acute bronchitis 59113628 J20.9 recommende d oral abx and follow as needed [id number] Akshat Andres MD IND_SMG_P CZ_DOC [address] [place] [address] 05/17/2016 15:22:35 05/17/2016 16:35:14 Vitamin D deficiency 02218762 E55.9 Hyperlipidemia 83919212 E78.5 Edema 900101432 R60.9 Hypothyroidism 13971784 E03.9 Follow by endo I will get labs today. 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 Area cleansed, antibiotic ointment applied with a dressing and instructio ns given on how to care for wound, signs of non-improv ement or worsening. [id number] Akshat Andres MD IND_SMG_P CZ_DOC [address] [place] [address] 10/18/2016 09:09:54 10/18/2016 09:49:38 Cellulitis 438733176 L03.90 [id number] Akshat Andres MD IND_SMG_P CZ_DOC [address] [place] [address] 11/22/2016 08:44:29 11/22/2016 09:25:15 Benign essential hypertension 8434675 I10 Type 2 gabriela betes mellitus 34430731 E11.9 Hyperlipidemia 40005062 E78.5 Vitamin D deficiency 347 59016 E55.9 Edema 709847097 R60.9 Hypothyroidism 17429374 E03.9 Follow by endo I will get labs today. Insomnia 537194641 G47.0 0 Cellulitis 454226265 L03 .90 [id number] Yolie Daniel NP IND_SMG_M UC_DOC [address] [place] [address] 10/11/2018 10:00:12 10/11/2018 12:03:40 Left sided abdominal pain 658903641 R10.9 Given the quality of the pain, recommend treatment for kidney stone. She declined KUB. If the pain is not improving in a few days she will follow up with PCP. If it is worsening or develops new symptoms will return here or go to the ER. Discussed side effects of flomax. Patient verbalized understand ing. [id number] Kim Dowell NP IND_SMG_H TC_DOC [address] [place] [address] 10/26/2019 10:32:53 10/26/2019 13:00:41 SARS-CoV-2 067607559 U07.1 Admitted 10/16 for COVID, acute hypoxic resp failure 2/2 COVID req O2 with ambulation -new, DMII, and morbid obesity. PMH includes but not limited to DMII, prior DVT/PE, hypothyroi dism, and HLD. Presented to ER c/o dyspnea, fever, cough, and fatigue x5 days. +COVID 10/11. Pt hypoxic and febrile in ER, placed on 2L NC. Id consulted, pt received plasma 10/17, as well as IV steroids and remdesevir 10/16. Self-prone prn. Hospital stay complicate d by steroid-in duced hyperglyce reno, managed w/SSI. Pt req IV lasix to help w/CORTEZ/SOB. At time of d/c, pt still requiring 2L NC w/ambulati on, d/c with home O2. Pt to self-quara ntine until 10/25. Today, pt denies fever. Reports occ nonprod cough. Pt still needing O2 at 3L with activity. She has been checking SpO2 at home: 91-93% RA with sitting, reports 84% after shower, up to 88% RA with sitting for a few seconds after shower. Pt reports she becomes winded and fatigued very easily, unable to do much besides shower and rest. Endorses normal appetite. Denies PMH COPD, asthma, PIO. Pt has also has been able to lie prone while sleeping, states that has helped sx's. Encouraged continued IS use every 2-4 hrs while awake. Pt's quarantine time is up after today, unless she develops new/worsen ing sx's. Pt needing negative lab result to RTW and before she can see new PCP 11/11/2019. Explained to pt there is no way for us to know how long her testing may show positive. Will repeat end of this week and go from there. Pt's (Otis Waldrop [birth year]) also needs testing, will send both orders. Type 2 gabriela betes mellitus without complication 890352107 E11.9 Occ elevated BS during admission 2/2 steroids. Stable at d/c, no change to medication s. No new/worsen ing concerns reported today. continue metformin at 1000mg, rec goal dose 2000mg in future if needs better BS control. Defer to PCP, has new patient appointmen t 11/11/2019. Hypothyroidism [id number] E03.9 Stable on levothyrox ine. No changes today, defer continued management to PCP. Acute hypo xemic respiratory failure [id number] J96.01 Admitted 10/16 for COVID, acute hypoxic resp failure 2/2 COVID req O2 with ambulation -new, DMII, and morbid obesity. PMH includes but not limited to DMII, prior DVT/PE, hypothyroi dism, and HLD. Presented to ER c/o dyspnea, fever, cough, and fatigue x5 days. +COVID 10/11. Pt hypoxic and febrile in ER, placed on 2L NC. Id consulted, pt received plasma 8/16, as well as IV steroids and remdesevir 10/16. Self-prone prn. Hospital stay complicate d by steroid-in duced hyperglyce reno, managed w/SSI. Pt req IV lasix to help w/CORTEZ/SOB. At time of d/c, pt still requiring 2L NC w/ambulati on, d/c with home O2. Pt to self-quara ntine until 10/25. Today, pt denies fever. Reports occ nonprod cough. Pt still needing O2 at 3L with activity. She has been checking SpO2 at home: 91-93% RA with sitting, reports 84% after shower, up to 88% RA with sitting for a few seconds after shower. Pt reports she becomes winded and fatigued very easily, unable to do much besides shower and rest. Endorses normal appetite. Denies PMH COPD, asthma, PIO. Pt has also has been able to lie prone while sleeping, states that has helped sx's. Encouraged continued IS use every 2-4 hrs while awake. Pt's quarantine time is up after today, unless she develops new/worsen ing sx's. Dependence on supplemental oxygen [id number] 07 Z99.81 see notes above, currently on 3L NC to keep SpO2 >90%. Morbid obesity 785763691 E66.01 BMI during recent admission 49.9. Complicate s all aspects of care, likely impeding her COVID recovery. Encourage healthy diet/lifes tyle. CTM per PCP. History of deep vein thrombosis 112143970 Z86.718 Per medical records review, history of PE/DVT with recent completion of warfarin treatment in September 2019. See notes above re: recovering from COVID req supp O2 currently. No s/s DVT or PE today. CTM per PCP. [facility] edu cation given [id number] Z71.9 reviewed with patient [id number] Kim Dowell NP IND_SMG_H TC_DOC [address] [facility] [place] [address] 10/30/2019 14:59:07 10/30/2019 16:28:01 Acute pulmonary embolism [id number] I26.99 Pt admitted 10/25- as readmit for new PE. Pt recently admitted for COVID d/c on supp O2. Pt called our office after hours 10/25 c/o acute onset (since our appt earlier that AM) R lung/chest pain with breathing. Jeaneth Humphreys NP sent pt to ER where she was found to have mod to large PE in R main pulm arter extending into branches of RLL and RML arteries. Pt reported h/o provoked LLE DVT after knee surgery 01/2019 and PE after c/s several years ago. Pt on warfarin for DVT until 09/2019. No BLE sx's this admission. Pt started on lovenox w/plans to continue for 1 month then transition to po warfarin. Heme consulted, will manage her as OP. She still as INR machine at home, will check per heme orders. Pt d/c on home O2 (new last admission) , recheck need in 1-2 months per PCP. COVID quarantine ended 10/25, was taken out of isolation prior to d/c. Pt states after we ended our appt 10/25, she felt she actually had been working harder to breathe but had shrugged it off as just overdoing things since being home. She stated today that at one point before our appt he had told her he thought she was using more O2 than before d/c but she again ignored him. Pt doing better today, states using 2.5L with activity, SpO2 ~91%. Pain is much improved and she has improved on IS results as well. Pt states she tried to make lunch today on RA and noted I could feel it, it was hard but did not check SpO2. Explained to pt she will likely need to be on supp O2 for at least the next 1-2 months and new PCP can facilitate possible weaning to RA. She was able to pear picker lovenox w/o issue, familiar with how to inject. Pt states she is supposed to see heme/onc next week, awaiting their office to call her. She states she will reach out to them Saturday afternoon if does not hear from them sooner. Denies palpitatio ns, dizziness/ lightheade dness, fever/chil ls. She is still sleeping prone but states she was a stomach sleeper prior to getting sick with COVID. Endorses occ cough (noted 1 time recreation coordinator after having pt take deep breath) but this has also improved. Pt has been taken out of quarantine as of 10/25, denies new/worsen ing COVID sx's. Pt improving slowly but surely and will call our office with new/worsen ing concerns. CTM. History of deep vein thrombosis [id number] Z86.718 H/o DVT post-knee surgery 01/2019, on warfarin until recently 09/2019. Pt will f/u with heme/onc in 1 wk, see notes above. No s/s DVT during readmissio n, currently on lovenox for PE. SARS-CoV-2 [id number] U07 .1 see notes above. Pt taken out of isolation during readmissio n as of 10/26/2019. No new/worsen ing COVID concerns, pt is at this time considered safe for regular infectious precaution s and no longer in quarantine . Acute hypo xemic respiratory failure 963630507 J96.01 Remains on 2.5L O2 today. See notes above, stable and even somewhat improved. CTM per PCP. Benign ess ential hypertension 7271293 I10 Stable during admission, pt does not have BP cuff at home. Encouraged monitoring at home, CTM per PCP. Dependence on supplemental oxygen [id number] 07 Z99.81 see notes above, currently on 2.5L NC to keep SpO2 >90%. Morbid obesity 394495001 E66.01 BMI >49 per inpatient records. Complicate s all aspects of care, especially respirator y status. Encourage lifestyle changes to promote weight loss. CTM per PCP. Type 2 gabriela betes mellitus without complication [id number] E11.9 Stable, no changes. Pt remains on Metformin 1000mg, CTM per PCP if needs to maximize dose. Hypothyroidism 46478773 E03.9 Stable on levothyrox ine 350mcg po qd. No changes today, defer continued management to PCP. [id number] Gogo Rojas, DO IND_SMG_G AS__D [address], [address] [facility] [place] [address] 11/23/2020 08:10:48 11/23/2020 08:47:20 Fecal incontinence with fecal urgency [id number] 95841 R15.2 Has been issue past year.Occur s with loose and formed stool.Diff includes proctitis vs prolapse vs sphincter incompeten ce vs mass vs other.Will proceed with colonoscop y to further evaluate as she is due for this at this time. Submucosal tumor of gastrointestinal tract 055850011 D49.0 will evaluate TI at time of colonoscop y 2014 - Two small submucosal nodules of TI. CT abd and pelvis and chromagran in A level normal. Will proceed with octreotide scan. If octreotide scan normal then will consider repeat colonoscop y earlier then 3 yrs to assess if nodules increasing in size.Follo w up in 2 months Polyp of colon 48578940 K63.5 Past due for colon, will proceed a this time 2014 - repeat colonoscop y 3 yrs, 07/19, if not sooner to reeval TI submucosal nodules. Morbid obesity 507736641 E66.01 BMI 49She is interested in discussion of gastric sleeve.Kyler lemus refer to bariatric surgeon in [place] for consultati on Health Concerns Section Related Observation LastModified by Organization Detai ls LastModified Time None Recorded Concern Status LastModified by Organization Details LastModified Time None Recorded Advance Directives Directive None Recorded Payers Encounter Date Sequence Insurance Name Policy Number Policy Malagon Covered Member ID Malagon Member ID Guarantor Name 11/22/[address] [facility] [id number] Chantale Emmanuelle Benjie [id number] Chantale Dolly Benjie 11/22/2016 2 [employer] [id number] Otis A Benjie [id number] [facility] 10/11/[address] [facility] [id number] Chantale Emmanuelle Benjie [id number] Chantale Dolly Benjie 10/11/[address] [facility] [id number] Chantale Dolly Benjie [id number] Chantale Dolly Benjie 10/26/[address] [facility] [id number] Chantale A Benjie [id number] Chantale Dolly Benjie 10/26/2019 3 [place] [id number] Otis Benjie [id number] [place] Dolly Benjie 10/30/[address] [facility] [id number] Chantale Emmanuelle Benjie [id number] [facility] Benjie 10/30/2019 3 [place] [id number] Otis Benjie [id number] Chantale Dolly Benjie 11/23/[address] [facility] [id number] Chantale Waldrop [id number] Chantale Waldrop 11/23/2020 3 [place] [id number] Otis Waldrop [id number] Chantale Waldrop Notes Date Note Type Note Provider Name and Address Organization Details Recorded Time 11/22/2016 text/html 1- DM2: She is taking Metformin 1000 mg daily. She continues to control carbs. Following [facility]. 2- Hypothyroid: Recently levothyroxine was adjusted. Has an appt with Endo next month. 3- HLD: LDL still high however has started to improve with the diet. 4- Morbid obesity: She lost a total of 20 lbs, finishing third month of phentermine.5- Insomnia: Taking Sonata PRN6- Edema: Not taking furosemide anymore7-Right leg cellulitis: improving, done with Clindamycin. Ulcer has improvement but still open. Akshat Andres MD [address] [place] [address], [address], [place], [address], [place] [facility] 11/22/2016 09:28:11 10/11/2018 text/html Patient presents with left sided abdominal pain that started last night around 11PM. It feels sharp and deep inside. She feels it some at rest but it is worse with movement. Not associated with other symptoms including nausea, vomiting, diarrhea, constipation, urinary frequency, hematuria, dysuria, or fever. She has not tried anything for the pain. Has not had a pain like this before. She denies history of kidney stones. She has had a tubal ligation and a section, no other abdominal surgeries. Multiple comorbidities including diabetes, hypertension, morbid obesity, hyperlipidemia, and hypothyroidism. Yolie Daniel NP [address], [place], [address], [facility] 10/11/2018 11:13:13 10/26/2019 text/html Patient acknowledged, consented, and participated in this {{telephone - audio only visit. telephone - audio and video visit which was conducted using secure real time audio and video.*}} Patient co-pay amounts may apply to virtual services when coverage is available per your payor. If coverage is not available, patient assumes responsibility for payment. {{Yes* No}} HPI: Pt is a 59yo female who has been contacted for AV visit post-d/c 10/21. Admitted 10/16 for COVID, acute hypoxic resp failure 2/2 COVID req O2 with ambulation-new, DMII, and morbid obesity. PMH includes but not limited to DMII, prior DVT/PE, hypothyroidism, and HLD. Presented to ER c/o dyspnea, fever, cough, and fatigue x5 days. +COVID 10/11. Pt hypoxic and febrile in ER, placed on 2L NC. Id consulted, pt received plasma 10/17, as well as IV steroids and remdesevir 10/16. Self-prone prn. Hospital stay complicated by steroid-induced hyperglycemia, managed w/SSI. Pt req IV lasix to help w/CORTEZ/SOB. At time of d/c, pt still requiring 2L NC w/ambulation, d/c with home O2. Pt to self-quarantine until 10/25. No changes to chronic medications. Appears pt has PCP appt scheduled 10/29 but has requested assistance in establishing with new PCP. Today we will evaluate pt for post-d/c needs and assist with f/u, including new PCP. TCM billing requirements met as pt has been seen for [id number] encounter within 2 business days of hospital discharge. Med rec and discharge summary review completed with this pt by this provider. Kim Dowell NP [address], [address], [place], [address], [place] [facility] 10/26/2019 11:34:14 10/30/2019 text/html Patient acknowledged, consented, and participated in this {{telephone - audio only visit. telephone - audio and video visit which was conducted using secure real time audio and video.*}} Patient co-pay amounts may apply to virtual services when coverage is available per your payor. If coverage is not available, patient assumes responsibility for payment. {{Yes* No}} HPI: Pt is a 59yo female not new to [facility]. Pt contacted for AV via [email or web address] for hospital d/c f/u. Pt admitted 10/25- as readmit for new PE. Pt recently admitted for COVID d/c on supp O2. Pt called our office after hours 10/25 c/o acute onset (since our appt earlier that AM) R lung/chest pain with breathing. Jeaneth Humphreys NP sent pt to ER where she was found to have mod to large PE in R main pulm arter extending into branches of RLL and RML arteries. Pt reported h/o provoked LLE DVT after knee surgery 01/2019 and PE after c/s several years ago. Pt on warfarin for DVT until 09/2019. No BLE sx's this admission. Pt started on lovenox w/plans to continue for 1 month then transition to po warfarin. Heme consulted, will manage her as OP. She still as INR machine at home, will check per heme orders. Pt d/c on home O2 (new last admission), recheck need in 1-2 months per PCP. COVID quarantine ended 10/25, was taken out of isolation prior to d/c. All other chronic issues stable. Pt has new PCP appt 11/11/2019. Today we will evaluate for any post-d/c needs. TCM billing requirements met as pt has been seen for [id number] encounter within 2 business days of hospital discharge. Med rec and discharge summary review completed with this pt by this provider. Kim Dowell NP [address], [address], [place], [address], [place] [facility] 10/30/2019 16:25:26 11/23/2020 text/html Pt is a 60 yr ol d F who is here because due for colonoscopy. She has been having issues with stool urgency. She says she has no warning. She says she stools regularly to try and avoid an issue. Says this occurs with loose and formed stool. Does have some incontinence issues. has been occuring for the past year. She says recently, about two months ago, felt a painful lump with wiping and saw some blood. this resolved but she had not had these issues before.Stool is normally formed.No abd pain.Prior colonoscopy was 2014 with 1 cm TA and some small submucosal lesions. she had imaging including octreotide scan in 2014 and these were normal. She is interested in gastric sleeve. In October 2019 she had covid and developed PE. she had dvts in past. She is following with the sander setter and currently not on anticoagulation.Covi d vaccine complete in July. No current chest pain or sob. Gogo Rojas, DO [address], [address], [place], [address], [place] [facility] [place] [facility] [place] 11/23/2020 08:52:16 OBGyn Episode No OBEpisode recorded.
--- OUTSIDE RECORDS SUMMARY | 2024-06-24 17:06 | XMS_ITS | Continuity of Care Document ---
Author Organization [facility] Address [address] [place] [address] Phone Care Team Providers Care Cash Applications Analyst Name Role Phone Moises Isidro PT Unavailable Unavailable Procedures Procedure Date Therapeutic Activities Therapeutic Exercise Progress Note Therapeutic Activities Therapeutic Exercise Therapeutic Activities Therapeutic Exercise Neuromuscular Re-Ed Therapeutic Exercise Therapeutic Activities Therapeutic Exercise Therapeutic Activities Therapeutic Exercise Therapeutic Activities Neuromuscular Re-Ed Therapeutic Exercise Therapeutic Activities Neuromuscular Re-Ed Therapeutic Exercise Therapeutic Activities Neuromuscular Re-Ed Therapeutic Exercise Therapeutic Activities Therapeutic Exercise Therapeutic Activities Neuromuscular Re-Ed Therapeutic Exercise PT Evaluation High Complexity Therapeutic Activities Therapeutic Exercise Therapeutic Activities Neuromuscular Re-Ed Therapeutic Exercise Neuromuscular Re-Ed Therapeutic Activities Therapeutic Exercise Therapeutic Exercise Therapeutic Activities Neuromuscular Re-Ed Neuromuscular Re-Ed Therapeutic Exercise Therapeutic Activities PT Evaluation High Complexity Therapeutic Activities Therapeutic Exercise Advance Directives Directive Yes / No Effective Date File Name No Information Encounters Encounter Description Practice Location Reason(s) For Visit Diagnoses Date Provider Providers Copied on Encounter [facility], [address], [place], [place], [id number], tel:[phone] [place] No Information Sanna Ortega [facility], [address], [place], [place], [address], tel:[phone] [place] No Information Sanna Ortega [facility], [address], [place], [place], [address], tel:[phone] [place] No Information Sanna Ortega [facility], [address], [place], [place], [address], tel:[phone] [place] No Information Cordell Ortega [facility], [address], [place], [address], tel:[phone] [place] No Information Ivory Palm. Shannon [facility], [address], [place], [place], [address], tel:[phone] [place] No Information Sanna Ortega [facility], [address], [place], [place], [address], tel:[phone] [place] No Information Sanna Ortega [facility], [address], [place], [place], [address], tel:[phone] [place] No Information Sanna Moises. . [facility], [address], [place], [place], [address], tel:[phone] [place] No Information Sanna Moises. . [facility], [address], [place], [place], [address], tel:[phone] [place] No Information Sanna Moises. . [facility], [address], [place], [place], [address], tel:[phone] [place] No Information Sanna Moises. . [facility], [address], [place], [place], [address], tel:[phone] [place] No Information Sanna Moises. . [facility], [address], [place], [place], [address], tel:[phone] [place] No Information Sanna Moises. . Referring Provider: [address], [place], [address]. tel:[phone] [facility], [address] [facility], [place], [place], [address], tel:[phone] [place] No Information Sanna Moises. . Referring Provider: [address], [place], [address]. tel:[phone] [facility], [address], [place], [place], [address], tel:[phone] [place] No Information Sanna De Leon. . Referring Provider: [address], [place], [address]. tel:[phone] [facility], [address], [place], [place], [address], tel:[phone] [place] No Information Sanna De Leon. . Referring Provider: Jolanta Wilde, [address], [place], [address]. tel:[phone] [facility], [address], [place], [place], [address], tel:[phone] [place] No Information Sanna De Leon. . Referring Provider: Jolanta Wilde, [address], [place], [address]. tel:[phone] Family History Family Member Type Diagnosis Age At Onset No Information Payers Payer name Insurance type Covered libertarian ID Ghazal randall(s) Cigna [id number] CI [id number] [facility] [id number] Social History Type Description Quantity Date Captured Comments Sex Female Smoking Status No Information Chief Complaint And Reason For Visit No Information Reason For Referral Reason For Referral No Information History Of Present Illness Encounter Date Complaint History Of Prese nt Illness No Information Functional Status Date Functional Assessmen t No Information Instructions Date Instruction Additional Infor mation Giving encouragement to exercise Related to Overweight Giving encouragement to exercise Related to Overweight Giving encouragement to exercise Related to Overweight Giving encouragement to exercise Related to Overweight Assessments Type Assessment Date No Information Patient Care Teams Name Effective Dates (start - stop) Status Members No Information
--- OUTSIDE RECORDS SUMMARY | 2024-06-24 17:06 | XMS_ITS | Continuity of Care Document ---
Author Organization [employer] [place] Address [address] [place] [address] Phone Care Team Providers Care Dorr Operator Name Role Phone Lidia Hyde OT Unavailable Unavailable Procedures Procedure Date Therapeutic Activities Neuromuscular Re-Ed Therapeutic Exercise Manual Therapy Hot or Cold Pack Therapeutic Activities Neuromuscular Re-Ed Therapeutic Exercise Manual Therapy Hot or Cold Pack Therapeutic Activities Neuromuscular Re-Ed Therapeutic Exercise Manual Therapy Hot or Cold Pack Therapeutic Activities Neuromuscular Re-Ed Therapeutic Exercise Manual Therapy Hot or Cold Pack Doc neg elder mal no plan Identified as not an unhealthy alcohol u ser Not identified as unhealthy alcohol via screening OT Evaluation Low Complexity Therapeutic Activities Neuromuscular Re-Ed Therapeutic Exercise Manual Therapy Hot or Cold Pack Advance Directives Directive Yes / No Effective Date File Name No Information Encounters Encounter Description Practice Location Reason(s) For Visit Diagnoses Date Provider Providers Copied on Encounter [facility], [address], [place], [place], [id number], [place] tel:[phone] [place] No Information Jun- 0- 5 Hyde Lidia. . Referring Provider: Codie Ramirez, [address], [place], [address]. tel:[phone] [facility], [place], [place], [id number], [place] tel:[phone] [place] No Information Jun-0 3- 5 Hyde Lidia. . Referring Provider: Codie Ramirez, [address], [place], [address]. tel:[phone] [facility], [address], [place], [place], [id number], [place] tel:[phone] [place] No Information Mar-3 - 5 Hyde Lidia. . Referring Provider: Codie Ramirez, [address], [place], [address]. tel:[phone] [facility], [place], [place], [id number], tel:[phone] [place] No Information Mar-2 4- 5 Hyde Lidia. . Referring Provider: Codie Ramirez, [address], [place], [address]. tel:[phone] [facility], [place], [place], [id number], [place] tel:[phone] [place] [address] No Information Mar-2 1- 5 Hyde Lidia. . Referring Provider: Codie Ramirez, [address], [place], [address]. tel:[phone] Family History Family Member Type Diagnosis Age At Onset No Information Payers Payer name Insurance type Covered constitution party ID Authoriza tion(s) [facility] [id number] Social History Type Description Quantity Date Captured Comments Sex Female Smoking Status No Information Chief Complaint And Reason For Visit No Information Reason For Referral Reason For Referral No Information Plan Of Treatment Date Type Action Status Appointment [facility] BOOKED Appointment [facility] BOOKED History Of Present Illness Encounter Date Complaint History Of Prese nt Illness No Information Functional Status Date Functional Assessmen t No Information Instructions Date Instruction Additional Infor mation No Information Assessments Type Assessment Date No Information Patient Care Teams Name Effective Dates (start - stop) Status Members No Information
--- OUTSIDE RECORDS SUMMARY | 2024-06-24 17:06 | XMS_ITS | Data Portability ---
Author Organization [place] [facility] [place] [facility], [id number] Address [address] [facility] [place] [address] Care Team Providers Care Pharmacists Name Role Phone HERO OLMSTEAD Primary Care Provider CHIDI PRADO Breast Surgeon SILVA EID Orthopedic Surgeon DARON MART Hematology/Oncology [phone] HERO OLMSTEAD Referring Provider [phone] COREY SAMUEL Plastic/Reconstructive Surgeon Assessment Encounter Date Assessment Date Assessment LastModified by Organization Details LastModified Time 08/19/2023 08/19/2023 Ms. Chantale Gibbons is a 63-year-old woman with DM2 and hypothyroidism, and a past medical history significant for recurrent provoked venous thromboembolism including a pulmonary embolism following a section and subsequent prolonged hospitalization, BLE DVT following foot surgery, and a pulmonary embolism associated with COVID pneumonia. [email or web address] Not available 08/20/2023 16:19:31 08/23/2023 08/23/2023 Anticoagulation Surgery Instructions [facility] Epic [place] Specialist: Daron Mart MD Anticoagulant: N/A Antiplatelet Agent: aspirin 325 mg daily Procedure/Surgery: Panniculectomy TBD Surgeon/Performing Physician: Corey Samuel MD Location: [facility] Reason(s) for antithrombotic therapy: Recurrent provoked VTE Instructions STOP aspirin 5 days prior to procedure and do not resume until you stop enoxaparin. Weekday Date Action TBD Panniculectomy (NO enoxaparin) TBD If no bleeding concerns, begin enoxaparin 30 mg every 12 hours for 4 weeks. The patient has been instructed on the above recommendations and given prescriptions as appropriate. This anticoagulation management plan assumes adequate postoperative hemostasis has been achieved and the patient's renal function has not significantly changed. Please feel free to contact the [facility] at [phone] with any questions. Surgery instructions above reviewed and approved by Anticoagulation Surgery Team. CC: Corey Samuel MD (FAX: [phone]) [email or web address] Not available 08/26/2023 11:08:09 09/09/2023 09/09/2023 Anticoagulation Surgery Instructions [facility] Provider: Abena Pena PA-C Anticoagulant: Eliquis 5 mg every 12 hours Antiplatelet Agent: None Procedure/Surgery: Panniculectomy Surgeon/Performing Physician: Corey Samuel MD Reason(s) for antithrombotic therapy: Recurrent provoked VTE Weekday Date Action Sat10/25/2023 HOLD Eliquis 10/26/2023 HOLD Eliquis 10/27/2023 HOLD Eliquis 10/28/2023 PROCEDURE (HOLD Eliquis) Tu10/29/2023 TAKE enoxaparin 30 mg every 12 hours Sat10/30/2023 TAKE enoxaparin 30 mg every 12 hours 10/31/2023 TAKE enoxaparin 30 mg every 12 hours 11/01/2023 TAKE enoxaparin 30 mg every 12 hours 11/02/2023 TAKE enoxaparin 30 mg every 12 hours 11/03/2023 STOP enoxaparin and RESUME Eliquis 5 mg every 12 hours The patient has been instructed on the above recommendations and given prescriptions as appropriate. This anticoagulation management plan assumes adequate postoperative hemostasis has been achieved and the patient's renal function has not significantly changed. Please feel free to contact the [facility] at [phone] with any questions. Surgery instructions above reviewed and approved by Anticoagulation Surgery Team. CC: Corey Samuel MD (FAX:[phone]) [email or web address] Not available 09/09/2023 16:29:13 Plan of Treatment Reminders Order Date Submit Date Provider Last Modified By Organization Details Last Modified Time Details Appointments None recorded. Lab None recorded. Referral None recorded. Procedures None recorded. Surgeries None recorded. Imaging None recorded. Medication Orders enoxaparin 30 mg/0.3 mL subcutaneou s syringe 2023 024 [facility][id number], [address] [place], [address], 4 13:13:27 Patient TargetsNo targets recorded. Patient Instructions Encounter Date Encounter Id Patient Instructions Last Modified By Organization Details Last Modified Time 08/19/2023 [id number] Take anticoagulants/bl ood thinning medication exactly as prescribed. Seek medical attention if unusual bruising or bleeding develops. Avoid sitting or lying in bed for long periods of time without moving. Maintain a healthy weight and avoid smoking. Long distance travel can increase the risk of developing a clot so in these circumstances keep well hydrated and maintain leg movement by walking or pumping the leg muscles every hour. Prior to any surgery, seek advice from a healthcare provider. Seek medical attention if swelling, pain, or warmth/redness of the arm or leg develops (especially if one side of the body is affected more than the other); or if shortness of breath, chest pain, blood tinged phlegm, or breathing problems occur after traveling. [email or web address] Not available 08/20/2023 16:23:16 Reason for Referral None Reported. Problems Name Problem SNOMED Code Status Onset Date Resolution Date Notes Provider Name and Address Organization Details Recorded Time History of thromboem bolism 743962473 Active 2019 DVT, HISTORY OF; Entered By: Daron Mart MD Signed By: Daron Mart MD Not Available [facility] 3 10:49:33 Acute pulmonary embolism 885057776 Active 2019 OTHER ACUTE PULMONARY EMBOLISM WITHOUT ACUTE COR PULMONALE ; Entered By: Daron Mart MD Signed By: Daron Mart MD Not Available [facility] 3 10:49:34 History of pulmonary embolus 733232702 Active 2019 PE, HISTORY OF; Entered By: Daron Mart MD Signed By: Daron Mart MD Not Available [facility] 3 10:49:33 Acute deep vein thrombosi s of lower limb 12218616412 8 Active 2019 ACUTE DEEP VEIN THROMBOSI S (DVT) OF LEFT LOWER EXTREMITY ; Entered By: Daron Mart MD Signed By: Daron Mart MD Not Available [facility] 3 10:49:33 29556362 Active 2023 Jazzy Madera null, [place] [facility] 4 12:00:08 Problem Notes None recorded. Procedures Surgical History Date Name Laterality Status Provider Name and Address Organization Details Recorded Time 12/29/19 23 excision completed Jo Ann Adasczik [place] [facility] 08/20/2023 16:10:46 delivery completed Jo Ann Adasczik [place] [facility] 08/20/2023 15:26:11 arthroplasty completed Jo Ann Adasczik [place] [facility] 08/20/2023 15:26:28 cholecystectomy completed Jo Ann Adasczik [place] [facility] 08/20/2023 15:26:37 ligation of fallopian tube completed Jo Ann Adasczik [place] [facility] 08/20/2023 15:26:44 Carpal tunnel surgery completed Jo Ann Adasczik [place] [facility] 08/20/2023 15:26:53 procedure on foot completed Jo Ann Adasczik [place] [facility] 08/20/2023 15:27:13 Imaging Results None recorded. Procedure Notes None recorded. Medical Equipment None Reported. Allergies Allergen ID Allergen Name Allergen Category Reaction Reaction Severity Criticality Documentation Date Start Date Code Code System Note Provider Name and Address Organization Details Recorded Time 34735 No Allergy Informati on Available Not available Not available Not available Not available 02/13/2022 16278 UNK Not Available Not Available Not Available 46109 adhesive tape environme nt,medica tion Not available Not available Not available 08/15/2023 39639 UNK Not Available Not Available Not Available Medications Name Sig Start Date Stop Date Status Note LastModified by Organization Details LastModified Time celecoxib 200 mg capsule TAKE 1 CAPSULE BY MOUTH EVERY DAY 04/19 completed Entered By: Yvonne Cabrera RN Annita d By: Daron Mart MD Pharm acy Name: [facility]el[facility]* [address] [place] [address] [facility] Date: Rx ID: [id number] Authori ashley By: Daron Mart MD Uncod ed: N BMN: N Not Available Not Available Not Available metformin 500 mg tablet Take 2 tablet by mouth twice a day 05/12 completed Entered By: France Ariza d By: France Holden RN Uncod ed: N BMN: N Not Available Not Available Not Available levothyro xine 175 mcg tablet 08/17 completed Not Available Not Available Not Available atorvasta tin 10 mg tablet active Not Available Not Available Not Available aspirin 325 mg tablet Take 1 tablet every day by oral route. 08/25 completed Not Available Not Available Not Available ibuprofen 800 mg tablet TAKE 1 TABLET BY MOUTH 3 TIMES A DAY WITH FOOD active Not Available Not Available No t Available metoprolo l succinate ER 50 mg tablet,ex tended release 24 hr TAKE 1 TABLET (50MG) BY MOUTH EVERY MORNING FOR 30 DAYS active Not Available Not Available No t Available Synthroid 150 mcg tablet TAKE 1 TABLET BY MOUTH EVERY DAY 08/17 completed Not Available Not Available Not Available Insulin Syringe MicroFine 1 mL 27 gauge x 5/8 USE IN THE LEFT EAR DIRECTED FOR ENOXAPAR IN INJECTIO NS active Not Available Not Available No t Available valsartan 80 mg tablet 08/17 completed Not Available Not Available Not Available ciproflox acin 500 mg tablet 08/17 completed Not Available Not Available Not Available levothyro xine 75 mcg tablet 08/17 completed Not Available Not Available Not Available cephalexi n 500 mg capsule TAKE 1 CAPSULE BY MOUTH EVERY 12 HOURS FOR 5 DAYS FOR EACH FLARE UP active Not Available Not Available No t Available nystatin 100,000 unit/gram topical cream APPLY TO THE AFFECTED AREA 2 TO 3 TIMES A DAY 08/17 completed Not Available Not Available Not Available warfarin 5 mg tablet Take 1-2 tablet by mouth once a day as directed by 5mg x1 dose then resume M- 7.5mg,T- 10mg, W- 7.5mg, Th-7.5 mg, F-10 mg, S- 7.5mg, Sun- 7.5mg. Recheck INR 10/24 completed Entered By: France mott By: France Holden RN Uncod ed: N BMN: N Not Available Not Available Not Available magnesium 500 mg (as magnesium oxide) tablet One tablet by mouth twice a day 05/12 completed Entered By: Tania Ghosh CMA Sign ed By: Daron Mart MD Uncod ed: N BMN: N Not Available Not Available Not Available diclofena c sodium 75 mg tablet,de layed release 08/17 completed Not Available Not Available Not Available levothyro xine 200 mcg tablet 200 microgra ms every day by oral route. active Not Available Not Available No t Available halobetas ol propionat e 0.05 % topical cream APPLY A THIN TO THE AFFECTED AREA(S) EVERY DAY. DO NOT EXCEED MORE THAN 50 GRAMS PER WEEK OR 2 WEEKS DURATION active Not Available Not Available No t Available aspirin 81 mg tablet Take 3 tablets every day by oral route. 08/25 completed Not Available Not Available Not Available mupirocin 2 % topical ointment 08/17 completed Not Available Not Available Not Available zaleplon 10 mg capsule TAKE 1 CAPSULE BY MOUTH AT BEDTIME NEEDED active Not Available Not Available No t Available Lovenox 150 mg/mL subcutane ous syringe Inject 150 mg twice daily or as directed by provider 10/03 completed Entered By: Kaitlynn mott By: Kaitlynn KEYS Pharm acy Name: [facility]ia [facility]el[facility]* [address] [place] [address] [facility] Date: Rx ID: [id number] Authori zed By: Daron Mart MD Uncod ed: N BMN: N Not Available Not Available Not Available furosemid e 20 mg tablet TAKE 1 TABLET BY MOUTH EVERY DAY NEEDED active Not Available Not Available No t Available ergocalci ferol (vitamin D2) 1,250 mcg (50,000 unit) capsule TAKE 1 CAPSULE BY MOUTH TWICE A WEEK active Not Available Not Available No t Available warfarin 1 mg tablet Take 1 mg by mouth once a day as directed by 5mg x1 dose then resume M- 7.5mg,T- 10mg, W- 7.5mg, Th-7.5 mg, F-10 mg, S- 7.5mg, Sun- 7.5mg. Recheck INR 10/24 completed Entered By: France Holden RN Annita d By: France Holden RN Uncod ed: N BMN: N Not Available Not Available Not Available methylpre dnisolone 4 mg tablets in a dose pack 08/17 completed Not Available Not Available Not Available multivita min capsule One capsule once a day 05/12 completed Entered By: Tania Ghosh CMA Sign ed By: Daron Mart MD Uncod ed: N BMN: N Not Available Not Available Not Available metformin ER 500 mg tablet,ex tended release 24 hr 1000 mg twice a day by oral route. 08/17 completed Not Available Not Available Not Available amoxicill in 875 mg-potass ium clavulana te 125 mg tablet 08/17 completed Not Available Not Available Not Available amoxicill in 500 mg-potass ium clavulana te 125 mg tablet 08/17 completed Not Available Not Available Not Available oxycodone 5 mg tablet TAKE 1 TABLET BY MOUTH EVERY 8 HOURS NEEDED FOR MODERATE PAIN 08/17 completed Not Available Not Available Not Available Adult Low Dose Aspirin 81 mg tablet,de layed release Take 1 tablet every day by oral route. 2023 active Not Available Not Available Not Avai lable enoxapari n 30 mg/0.3 mL subcutane ous syringe Inject 0.3 mL every 12 hours by subcutan eous route for 28 days. active Not Available Not Available No t Available enoxapari n 300 mg/3 mL subcutane ous solution Inject 30 mg under the skin every 12 hours followin g the procedur e plan active Not Available Not Available No t Available Klor-Con M20 mEq tablet,ex tended release active Not Available Not Available Not Available Multivita min 50 Plus tablet take one tablet daily active Not Available Not Available No t Available Martoven 2.5 mg tablet Take 1 tablet once a day as directed 10/03 completed Entered By: Kaitlynn mott By: Kaitlynn KEYS Annot ate: Completi on of Therapy Uncoded: N BMN: N Not Available Not Available Not Available nitrofura ntoin monohydra te/macroc rystals 100 mg capsule 08/17 completed Not Available Not Available Not Available fenofibra te 160 mg tablet TAKE 1 TABLET BY MOUTH EVERY DAY active Not Available Not Available No t Available B Complex take one tablet daily active Not Available Not Available No t Available biotin take one tablet daily active Not Available Not Available No t Available multivita min Take 1 capsule by mouth once a day 05/12 completed Entered By: France Ariza d By: France Holden RN Uncod ed: Y BMN: N Not Available Not Available Not Available TRUEplus Insulin 1 mL 31 gauge x 07/17 syringe 08/17 completed Not Available Not Available Not Available Eliquis 5 mg tablet TAKE 1 TABLET (5 MG) BY MOUTH EVERY 12 HOURS FOR 30 DAYS active Not Available Not Available No t Available Ozempic 1 mg/dose (4 mg/3 mL) subcutane ous pen injector 08/17 completed Not Available Not Available Not Available Ozempic 2 mg/dose (8 mg/3 mL) subcutane ous pen injector 2 mg every week by sub-q route. active Not Available Not Available No t Available Vitals Date Recorded Body weight Body mass index (BMI) Body height Provider Name and Address Organization Details Last Updated DateTime 08/19/2023 367581 g 47.2 kg/m2 171.5 cm Jo Ann Mclean [facility] 08/19/2023 15:16:11 Social History Question Answer Notes LastModified by Organizat ion Details LastModified Time Tobacco Smoking Status Former Smoker remote Jo Ann shane, [place] [facility] 08/20/2023 15:24:15 Do You Have An Advance Directive? No Information not available 07/26/2022 What Is Your Level Of Alcohol Consumption? 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 No Information not available 07/26/2022 Do You Have A Medical Power Of Vaccinator/health care Clothes Drier Repairer? No Information not available 07/26/2022 What Is Your Relationship Status? Information not available 08/20/2023 Do You Use Any Illicit Or Recreational Drugs? No No Herbal Supplements Or Recreational Drugs. Information not available 08/20/2023 Sex: Female Functional Status None recorded. Mental Status None recorded. Family History Relationship Description Onset Age of this Age Resolved Age Notes LastModified by Organization Details LastModified Time Father Heart failure [email or web address] Not available 2023 15:23:01 Mother Hypercholest erolemia aadasczik Not available 2023 15:23:29 Notes:No history of DVT or P E. History updated from [facility] on 08/19/23. Medical History Condition Response Diabetes Y Other Y Thyroid Disease Y Hyperlipidemia Y GERD/Reflux Y Pulmonary Embolism Y Obstructive Sleep Apnea Y Hypertension Y Gynecological HistoryNo gynecological history recorded. Obstetrics History GPAL:G 1 P 0 0 0 0 Immunizations Vaccine Type Date Status Note Provider Nam e and Address Organization Details Recorded Time Influenza, injectable,quadriva lent, preservative free, pediatric 9 completed Jo Ann Adasczik null, [place] [facility] 08/15/2023 11:53:29 Influenza, injectable,quadriva lent, preservative free, pediatric 6 completed Jo Ann Adasczik null, [place] [facility] 08/15/2023 11:53:29 Influenza, MDCK, quadrivalent, PF 8 completed Jo Ann Adasczik null, [place] [facility] 08/15/2023 11:53:29 Influenza, MDCK, quadrivalent, PF 7 completed Jo Ann Adasczik null, [place] [facility] 08/15/2023 11:53:29 Influenza, MDCK, quadrivalent, PF 0 completed Jo Ann Adasczik null, [place] [facility] 08/15/2023 11:53:29 zoster recombinant 9 completed Jo Ann Adasczik null, [place] [facility] 08/15/2023 11:53:29 zoster recombinant 9 completed Jo Ann Adasczik null, [place] [facility] 08/15/2023 11:53:29 COVID-19, mRNA, LNP-S, PF, 100 mcg/0.5mL dose or 50 mcg/0.25mL dose 1 completed Jo Ann Adasczik null, [place] [facility] 08/15/2023 11:53:29 COVID-19, mRNA, LNP-S, PF, 100 mcg/0.5mL dose or 50 mcg/0.25mL dose 1 completed Jo Ann Adasczik [place], [place] [facility] 08/15/2023 11:53:29 pneumococcal polysaccharide PPV23 7 completed Jo Ann Adasczik null, [place] [facility] 08/15/2023 11:53:29 pneumococcal polysaccharide PPV23 0 completed Jo Ann Adasczik [place], [place] [facility] 08/15/2023 11:53:29 Tdap 3 completed Jo Ann Adasczik null, [place] [facility] 08/15/2023 11:53:29 Influenza, split virus, trivalent, preservative 4 completed Jo Ann Adasczik null, [place] [facility] [place] [facility] 08/15/2023 11:53:29 Influenza, split virus, trivalent, preservative 9 completed Jo Ann Adasczik null, [place] [facility] 08/15/2023 11:53:29 Influenza, split virus, trivalent, preservative 6 completed Jo Ann Adasczik null, [place] [facility] [place] [facility] 08/15/2023 11:53:29 Influenza, split virus, trivalent, preservative 5 completed Jo Ann Adasczik null, [place] [facility] 08/15/2023 11:53:29 Influenza, split virus, trivalent, PF 6 completed Jo Ann Adasczik null, [place] [facility] 08/15/2023 11:53:29 Novel [id number] 9 completed Jo Ann Adasczik null, [place] [facility] 08/15/2023 11:53:29 Td (adult), 2 Lf tetanus toxoid, preservative free, adsorbed 5 completed Jo Ann Adasczik null, [place] [facility] 08/15/2023 11:53:29 Hep A, adult 6 completed Jo Ann Adasczik null, [place] [facility] 08/15/2023 11:53:29 Hep A, adult 7 completed Jo Ann Adasczik null, [place] [facility] 08/15/2023 11:53:29 meningococcal MCV4P 6 completed Jo Ann Adasczik null, [place] [facility] 08/15/2023 11:53:29 Past Encounters Encounter ID Performer Location Encounter Start Date Encounter Closed Date Diagnosis/Indication Diagnosis SNOMED-CT Code Diagnosis ICD10 Code Diagnosis Note [id number] MASSIMO FLOREZ [facility] [address] [place] [address] 04/04/2022 10:38:47 04/10/2022 03:54:45 History of thromboembolism 759694543 Z86.718 Given her history of recurrent provoked venous thromboemb olism, Chantale needs to take postoperat florinda anticoagul ation. To minimize bleeding, I would recommend starting with a low dose enoxaparin , slowly titrate up only to 0.5 mg/kg/BID which would be 70 mg BID. She would do this between the surgical procedures , holding the night before each one. Following the 3rd surgery, I would be comfortabl e letting her eventually transition to Eliquis 5 mg BID and continue for a total of 12 weeks, especially now that her BMI is <50 and studies indicate that DOACs are not inferior to warfarin in patients with a BMI >30. [id number] MASSIMO FLOREZ [facility] [address] [place] [address] 07/26/2022 09:36:25 07/26/2022 10:45:19 History of pulmonary embolus 306225967 Z86.711 History of recurrent provoked DVT/PE in the past. Chantale has been able to use a multi-dose vial of enoxaparin to prevent waste. She has one more procedure and will take postop Lovenox for 2-3 days before switching to Eliquis 5 mg twice daily. These have been outpatient procedures thus far and the last one she will stay for 2-3 days but Chantale makes a point of getting up and ambulating ZHENG to minimize her risk of VTE. She was provided discount cards for the Eliquis. 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 She does not take termite control technician anticoagul ation but has taken postop DVT prophylaxi s in the past with enoxaparin and warfarin. She has had 2x breast surgeries in 2022, in which she has recovered well. Chantale has been able to use a multi-dose vial of enoxaparin to prevent waste. We will need to coordinate with Dr. Corey Samuel to create a surgical plan for her upcoming [facility] randy. Preop is 09/04/23. Will need to reach out to his office to get info for anticoag recs - plan for 30mg enoxaparin BID x4 weeks. Otherwise, follow-up is not planned at this time. She knows to call our office with any new or worsening bleeding symptoms or with any questions or concerns. [id number] GARRETT HAYWOOD, PharmD [place] [address] [place] [address] 08/23/2023 10:09:11 08/23/2023 15:41:51 Chronic care home disease management required: complex needs 882838392 Z76.89 Long-term current use of anticoagulant 816764014 Z79.01 [id number] DONAVON MUÑOZ, PHARM D [facility] [address] [place] [address] 09/09/2023 16:21:59 09/09/2023 16:54:06 Chronic care home disease management required: complex needs 906142547 Z76.89 Long-term current use of anticoagulant 300854827 Z79.01 [id number] Marshall Rivera RN [facility] [address] [place] [address] 11/07/2023 09:53:49 11/12/2023 03:57:54 Health Concerns Section Related Observation LastModified by Organization Detai ls LastModified Time None Recorded Concern Status LastModified by Organization Details LastModified Time None Recorded Advance Directives Directive N: Payers Encounter Date Sequence Insurance Name Policy Number Policy Malagon Covered Member ID Malagon Member ID Guarantor Name 01/03/2023 1 [place] [id number] Otis Reyesecht [id number] Chantale Reyesecht 01/03/2023 1 [employer] - OPEN ACCESS PLUS [id number] Chantale Waldrop [id number] Chantale Reyesecht 08/19/2023 1 [place] [id number] Otis Benjie [id number] Chantale Reyesecht 08/23/2023 1 [place] [id number] Otis Reyesecht [id number] Chantale Bootht 09/09/2023 1 [place] [id number] Otis Bootht [id number] Chantale Reyesecht 11/07/2023 1 [place] [id number] Otis Bootht [id number] Chantale Waldrop Notes Date Note Type Note Provider Name and Address Organization Details Recorded Time 01/03/2023 text/html AC Surgery Follo w-up Checklist ChecklistCompletedNotes Surgery completed as scheduled{{Yes* No - Canceled No - Postponed}} {{ Bilateral breast flank/breast mass excision 12/28/22#}} Surgery plan followed{{Yes No*}} {{ Due to development of hematoma, pt was instructed by surgeon not to start Lovenox until Saturday12/31/22#}} Bleeding complications{{Yes* No} } {{ Pt developed a hematoma post-op at surgical site and per pt surgeon had to surgically remove it. #}} Clotting issues/symptoms{{Yes No *}} {{}} Marshall Rivera, RN [address], [place], [address], [place] [facility] 01/03/2023 10:36:27 08/19/2023 text/html Ms. Chantale Gibbons is a 63-year-old woman with DM2 and hypothyroidism, and a past medical history significant for recurrent provoked venous thromboembolism including a pulmonary embolism following a section and subsequent prolonged hospitalization, BLE DVT following foot surgery, and a pulmonary embolism associated with COVID pneumonia. She does not take termite control technician anticoagulation but has taken postop DVT prophylaxis in the past with enoxaparin and warfarin. She is in the process of going through breast reduction surgery in a 3 part series. The first surgery was in April 2022 with breast tissue removal from the left side and back. The second surgery in mid June 2022 was with breast tissue removal from the right side and back. Each time she was given specific instructions for starting on enoxaparin 40 mg, then titrating up to 70 mg twice daily (0.5 mg/kg/BID). She underwent bilateral breast flank/breast mass excision on 12/28/22Shannon Kenyon did not start her Lovenox until Saturday12/31/22 due to a post-op development of a hematoma, but then started with Eliquis 5 mg BID q12 hours x4 weeks without any concerns. She presents to the clinic today seeking surgical clearance for a panniculectomy with Dr. Corey Samuel in [place], [place]. Her pre-op appointment is scheduled for , noting that she will be under GA for 4.5-6 hours. There are no other questions or concerns at today's visit. DARON MART MD [address], [facility][1] [place], [address], [place] [facility] 08/22/2023 13:14:13 08/23/2023 text/html Surgery PlanningReported bypatient.Procedure NamePanniculectomy Primary anticoagulation:none Antiplatelet:ASA [facility] received surgery clearance request:yes Surgery clearance recommendation staffed with provider and confirmed:yes Surgery cleared by [facility] providerBetbadal Surgeon first and last name:Corey Samuel Do [facility] recs match surgeon recs: Recommended # of days to hold primary anticoagulant post-op: Bridging agents used and prescribed:yes Surgery Planning Milestones Checklist ChecklistCompletedNotes Procedure notification/Surgery Clearance Form{{Clearance received* Notified by patient Other}} {{}} Surgery clearance recommendation staffed with provider and confirmed{{Done* }} {{ Dr. Mart provided recs in a patient case#}} AC Surgery Letter completed{{Done* }} {{}} Letter sent to proceduralist{{Done* N/ A}} {{ Biscomfax#}} Copy of letter sent to patient and plan discussed with patient{{Done via mail Done via portal Done by phone Done in person Done via Klara Done by e-mail* N/A}} {{}} Medications prescribed{{Done* N/A}} {{ by Dr. Mart; I ended up prescribing the multi-dose vials at patient's request. #}} Medication sample(s) dispensed{{Done N/A*}} {{}} Stroke Thrombosis RNCC notified{{Done* N/A}} {{}} I called and discussed plan with patient. Patient verbalized understanding of plan. Patient knows to not take any ibuprofen while on enoxaparin. Will send in enoxaparin multi-dose vials at the patient's request d/t lower cost. GARRETT HAYWOOD, ShaggyD [address], [place], [address], [place] [facility] 08/26/2023 12:09:41 09/09/2023 text/html AC Surgery PlanningReported bypatient.Procedure Date (MM/DD/YYYY)Date 024 Procedure NamePanniculectomy Primary anticoagulation:Eliquis 5 mg Antiplatelet:None [facility] received surgery clearance request:yes Surgery clearance recommendation staffed with provider and confirmed:yes Surgery cleared by [facility] Ce Pena PharmD recommendation accepted as is:yes Surgeon first and last name:Chen Samuel [facility] recs match surgeon recs: Recommended # of days to hold primary anticoagulant pre-op:3 Recommended # of days to hold primary anticoagulant post-op:1 Bridging agents used and prescribed:yes Surgery Planning Milestones Checklist ChecklistCompletedNotes Procedure notification/Surgery Clearance Form{{Clearance received Notified by patient* Other}} {{}} Surgery clearance recommendation staffed with provider and confirmed{{Done* }} {{}} AC Surgery Letter completed{{Done* }} {{}} Letter sent to proceduralist{{Done* N/ A}} {{ Updated plan sent 09/09#}} Copy of letter sent to patient and plan discussed with patient{{Done via mail Done via portal Done by phone* Done in person Done via Klara Done by e-mail N/A}} {{ Copy sent via USPS #}} Medications prescribed{{Done* N/A}} {{ Enoxaparin had been prescribed 08/26/23#}} Medication sample(s) dispensed{{Done N/A*}} {{}} Stroke Thrombosis CC notified{{Done* N/A}} {{}} Discussed tentative plan with patient via phone on 09/08. After Abena approved, LVM on 09/09 to confirm the plan and that I would send a copy via GleamS as we discussed the day before. DONAVON MUÑOZ, PHARM D [address], [place], [address], [facility] 09/10/2023 09:14:05 11/07/2023 text/html AC Surgery Follow-upReported bypatient.Procedure Date (MM/DD/YYYY)DATE10/28/23 Procedure NamePanniculectomy Surgery completed as scheduled:yes Surgery plan followed:yes Bleeding complications:no Clotting complications:no Marshall Rivera, RN [address], [place], [phone], [facility] 11/07/2023 09:54:31 OBGyn Episode Ob Episode Information Episode Created Date Number of Fetuses Patient Bloodtype Patient rh Status Prepregnancy Weight lbs Domestic Partner Domestic Partner Phone Father Name Mooner Status 10/07/19 1 OPEN Fetus Data First Name Last Name Admitted to NICU Weight (g) Sex Living Outcome Pediatric Complications Fetus ID Race Codes Race Delivery Type [id number] Jethro Calculation Initial Jethro Date Initial Exam Date Initial Exam Provider Initial Ultrasound Date Last Menstrual Period Date Ultra Sound Weeks Gestation 10/07/2023 0 Eighteen To Twenty Week Jethro Update Ultra Sound Date Fundal Height At Umbil Quickening Date Ultra Sound Latest Weeks Gestation Final Jethro Confirmed By Final Jethro Confirmed Date Final Jethro Date Ultra Sound Latest Days Gestation 0 0 Pre- Flowsheet Flowsheet Date 11/07/2023 Sinclair Score Blood Edema Fundus Height Fundus Units Glucose Ketones Leukocytes Nitrite Labor Signs Protein Cervic Dilation Cervic Effacement Cervic Station Type Weight in lbs Pre/Post Dialysis Refused BP Diastolic BP Location Tested BP Systolic BP Type Fetus Heart Rate Present Fetus Movement Comments Menstrual History Last Menstrual Date Menses Monthly On Bcp Conception Prior Menses Frequency Hcg Plus Date Menarche Onset Age Delivery Information Delivery Date Delivery Type Labor Anesthesia Weeks Gestation Incision Type Labor Labor Length Hrs Delivered By Post Complications Tubal Sterilization Discharge Date Comments Discharge Information Feeding Method Contraceptive Method Maternal HG B and HCT Levels
== END 2024-06-24 15:02 | disposition home or self-care (01) ==
DX: Z12.31 Encounter for screening mammogram for malignant neoplasm of breast (principal)
CPT/HCPCS: 77063; 77067

== ENCOUNTER 2024-12-03 14:12 | Outpatient (CLI) | payer BC, SELFPAY ==
--- NOTE | ~2024-12-03 | MR_ITS ---
EXAMINATION: MR lumbar spine wo con DATE: 12/03/2024 15:25 INDICATION: Lumbar radiculopathy. TECHNIQUE: Magnetic resonance imaging (MRI) of the lumbar spine was performed without intravenous contrast. Sequences included sagittal T2-weighted FSE, sagittal T2-weighted FS FSE, sagittal T1-weighted FSE, and axial T2-weighted FSE. COMPARISON: None FINDINGS: There is 3 mm retrolisthesis of L1 on L2. There is mild chronic anterior wedging of L1 vertebral body. There is moderately decreased disc height at L1-L2, mildly decreased disc height at L2-L3, L3-L4, and L4-L5, and severely decreased disc height at L5-S1. The distal spinal cord signal intensity is normal. The conus medullaris is at L1. The following disc levels are specifically discussed: L1-L2: The disc is bulging and has an annular fissure. There is moderate right and severe left facet joint osteoarthritis. There is moderate bilateral neural foraminal stenosis. There is mild central canal stenosis. L2-L3: The disc is bulging and has an annular fissure. There is severe right and mild left facet joint osteoarthritis. There is mild bilateral neural foraminal stenosis. There is mild central canal stenosis. L3-L4: The disc is bulging and has an annular fissure. There is severe bilateral facet joint osteoarthritis. There is mild right and moderate left neural foraminal stenosis. There is mild central canal stenosis. L4-L5: The disc is bulging and has an annular fissure. There is severe bilateral facet joint osteoarthritis. There is mild right and moderate left neural foraminal stenosis. There is mild central canal stenosis. L5-S1: The disc is bulging and has an annular fissure. There is moderate bilateral facet joint osteoarthritis. There is moderate right and mild left neural foraminal stenosis. There is mild central canal stenosis. IMPRESSION: 1. Severe lumbar spondylosis. Reviewed, dictated and finalized at location E.
--- OUTSIDE RECORDS SUMMARY | 2024-12-03 14:16 | XMS_ITS | Clinical Summary ---
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 Name Role Phone Unavailable Primary Care Provider Unavailabl e Social History Tobacco Use Types Packs/Day Years Used Date Smoking Tobacco: Never Assessed Comments Unknown Sex and Gender Information Value Date Recorded Sex Assigned at Not on file Legal Sex Female 7:04 PM CDT Gender Identity Not on file Sexual Orientation Not on file Plan of Treatment Upcoming Encounters Date Type Department Care Team (Late st Contact Info) Description 01/12/2025 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 Office Visit [facility] Multispecialty [facility] - [place] [address] [address] [place], [place] [id number] Rosalva De Leon MD [address] [place] [address] [phone] Health Maintenance Due Date Last Done Comments Cervical Cancer Screening Pa p Smear (Age 30 to 64) Every 3 Years 1962 Colorectal Cancer Screening Colonoscopy (10 Years) 1962 Annual Physical 1965 Hepatitis C 1980 DTaP, Tdap and Td Vaccines ( 1 - Tdap) 1981 Cervical Cancer Screening Pa p with HPV Testing (Age 30 to 64) Every 5 Years 1992 Cervical Cancer Screening with HPV 1992 Mammogram Screening 2002 Pneumococcal Vaccine: 50+ Ye ars (1 of 1 - PCV) 2012 Zoster Vaccines (1 of 2) 2012 COVID-19 Vaccine ( - 2023-2 5 season) 2024 RSV Immunization or 60+ Years (1 - 1-dose 75+ series) 2037 Meningococcal B Vaccine Aged Out No l onger eligible based on patient's age to complete this topic Meningococcal Vaccine Aged Out No ghislaine lionel eligible based on patient's age to complete this topic RSV Immunizations Under 20 Months Aged Out No longer eligible based on patient's age to complete this topic Insurance [facility]
--- OUTSIDE RECORDS SUMMARY | 2024-12-03 14:16 | XMS_ITS | Clinical Summary ---
Author Organization [facility] [address] Address [address] [place] [address] Care Team Providers Care Solar Installer Name Role Phone Miscellaneous, Not In File Primary Care Provider Unavailable Allergies Active Allergy Reactions Criticality Noted Date Comments Adhesive Other (See comments) 12/01/2024 Skin peels off Medications ergocalciferol (VITAMIN D) 50,000 unit capsule [...] (SONATA) 10 mg capsule as needed 09/03/2023 Active vitamin b complex tablet Take 1 tablet by mouth daily Active multivitamin tabletIndication s:Vitamin Deficiency Prevention Take 1 tablet by mouth Active magnesium oxide (MAG-OX) 400 mg (241.3 mg elemental magnesium) tabletIndication s:hypomagnesemia Take 1 tablet (400 mg total) by mouth daily Active biotin 10,000 mcg capsule Take by mouth daily Active Eliquis 5 mg tabletIndication s:Typical atrial flutter (HCC) TAKE 1 TABLET BY MOUTH TWICE A DAY 180 tablet 2 08/25/2024 Active metoprolol XL (TOPROL-XL) 50 mg extended release tabletIndication s:Typical atrial flutter (HCC) TAKE 1 TABLET BY MOUTH EVERY DAY 90 tablet 2 08/25/2024 Active Active Problems Problem Noted Date Diagnosed Date Typical atrial flutter 05/07/2024 Morbid (severe) obesity due to excess calories 0 09/30/2023 Body mass index (BMI) 45.0-49.9, adult Other thrombophilia 09/30/2023 Encounters Date Type Department Care Team Description 12/01/2024 10:30 AM CDT Office Visit [facility] Medical Group Cardiology at [address] [place] [phone] Zeferino Garcia MD Typical atrial flutter (HCC) (Primary Dx) 12/01/2024 Telephone [facility] Medical [facility] Cardiology at [address] [place] [address] Kim Malone MA Cardiac Clearance 11/05/2024 2:06 PM CDT - 11/05/2024 11:59 PM CDT Hospital Encounter [facility] [address] [place] [address] Unilateral primary osteoarthritis, right hip Discharge Disposition: Discharge to home or self care 09/23/2024 Orders Only [facility] Health Information Management [address] [place] [id number] Scanning, Provider from Last 3 Months Surgical History Surgery Date Site/Laterality Comments FLUORO GUIDED INJECTION HIP RIGHT 11/05/2024 Right Medical History Medical History Date Comments History of atrial flutter Social History Tobacco Use Types Packs/Day Years Used Date Smoking Tobacco: Former Cigarettes Smokeless Tobacco: Never Tobacco Cessation:Counseling Given: Not Answered Comments Unknown Sex and Gender Information Value Date Recorded Sex Assigned at Not on file 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 Gender Identity Not on file Sexual Orientation Not on file Obstetrics History Last Filed Vital Signs Vital Sign Reading Time Taken Comments Blood Pressure 130/80 12/01/2024 10:24 AM CDT Pulse 81 12/01/2024 10:24 AM CDT Temperature - - Respiratory Rate - - Oxygen Saturation 97% 12/01/2024 10:24 AM CDT Inhaled Oxygen Concentration - - Weight 138.3 kg (305 lb) 12/01/2024 10:24 AM CDT Height 172.7 cm (5' 8) 12/01/2024 10:24 AM CDT Body Mass Index 46.38 12/01/2024 10:24 AM CDT Plan of Treatment Health Maintenance Due Date Last Done Comments Breast Cancer Screening-Mammogram 1962 Cervical Cancer Screening 1962 Colon Cancer Screening-Colonoscopy 1962 Depression Screening 1962 Hepatitis C Screening 1962 Hepatitis B Screening 1980 Regular Well Visit/Exam 18-64 1980 DTaP/Tdap/Td Vaccine (2 - Td or Tdap) 01/12/2023 01/12/2013, 04/26/2004 Covid-19 Vaccine (3 - season) 2024 07/20/2020, 06/08/2020 Influenza Vaccine (#1) 2024 , 12/12/2019, 11/29/2018, Additional history exists Zoster Vaccine Completed 02/12/2019, 11/29/2018 Pneumococcal vaccine <65 Aged Out 01/06/2020, 08/02 No longer eligible based on patient's age to complete this topic Procedures Procedure Name Priority Date/Time Associated Diagnosis Comments ECG 12-LEAD Routine 12/01/2024 10:29 AM CDT Typical atrial flutter (HCC) FLUORO GUIDED INJECTION HIP RIGHT Schedule Routine, Read Routine (OP Routine) 11/05/2024 2:56 PM CDT Unilateral primary osteoarthritis, right hip SCAN - LABS 09/23/2024 5:26 PM CDT from Last 3 Months Results * ECG 12 lead (12/01/2024 10:29 AM CDT) us Zeferino Garcia MD ECG ORDERABLES Final Re sult * FL Fluoro Guided Injection Hip Right (11/05/2024 2:56 PM CDT) Anatomical Region Laterality Modality Hip Right Radio Fluoroscop y 11/05/2024 3:15 PM CDT Impressions 11/05/2024 3:15 PM CDT 1. Technically successful fluoroscopically guided therapeutic right hip joint injection. FLUOROSCOPY TIME: 0.4 minutes REFERENCE AIR KERMA: 9.9 mGy Electronically signed by: Gris Almeida PA-C Narrative 11/05/2024 3:15 PM CDT FLUOROSCOPICALLY GUIDED THERAPEUTIC RIGHT HIP INJECTION 11/05/2024. CLINICAL HISTORY: Right hip osteoarthritis COMPARISON: None available. TECHNIQUE: The procedure of fluoroscopically guided therapeutic hip joint injection with its associated risks were explained to the patient. Risks include but are not limited to bleeding, infection, injury to adjacent structures, and allergic reaction. Informed, written consent was then obtained. With the patient in a supine position on the fluoroscopic table, the right hip joint was localized. The skin over this area was marked. A timeout was performed. The site was prepped and draped in the normal sterile fashion. 4 mL of 1% lidocaine was used for local skin anesthesia. A 2.5 inch, 20-gauge needle was placed into the right hip joint under direct fluoroscopic visualization. Injection of 1 cc of Conray 60% contrast material confirms adequate positioning. A mixture of 40 mg of Depo-Medrol with 4 cc of 0.5% bupivacaine was then instilled. The patient tolerated the procedure well and there were no immediate complications. FINDINGS: Fluoroscopic images demonstrate injection of contrast in the right hip joint capsule confirming intra-articular placement of the needle. Procedure Note Gris Almeida PA - 11/05/2024 FLUOROSCOPICALLY GUIDED THERAPEUTIC RIGHT HIP INJECTION 11/05/2024. CLINICAL HISTORY: Right hip osteoarthritis COMPARISON: None available. TECHNIQUE: The procedure of fluoroscopically guided therapeutic hip joint injection with its associated risks were explained to the patient. Risks include but are not limited to bleeding, infection, injury to adjacent structures, and allergic reaction. Informed, written consent was then obtained. With the patient in a supine position on the fluoroscopic table, the right hip joint was localized. The skin over this area was marked. A timeout was performed. The site was prepped and draped in the normal sterile fashion. 4 mL of 1% lidocaine was used for local skin anesthesia. A 2.5 inch, 20-gauge needle was placed into the right hip joint under direct fluoroscopic visualization. Injection of 1 cc of Conray 60% contrast material confirms adequate positioning. A mixture of 40 mg of Depo-Medrol with 4 cc of 0.5% bupivacaine was then instilled. The patient tolerated the procedure well and there were no immediate complications. FINDINGS: Fluoroscopic images demonstrate injection of contrast in the right hip joint capsule confirming intra-articular placement of the needle. IMPRESSION: 1. Technically successful fluoroscopically guided therapeutic right hip joint injection. FLUOROSCOPY TIME: 0.4 minutes REFERENCE AIR KERMA: 9.9 mGy Electronically signed by: Gris Almeida PA-C Nevin Allison NP IMG FLUOROSCOPY PROCED URES Final Result * SCAN - LABS (09/23/2024 5:26 PM CDT) Provider Scanning Final Result from Last 3 Months Insurance [facility] [employer] ANTH ACCESS Care Teams Solar Installer Relationship Specialty Start Date End Date Miscellaneous, Not In File PCP - General 10/26/24
== END 2024-12-03 14:13 | disposition home or self-care (01) ==
LOC: CHSIMG 14:14
PROVIDERS: Visit Provider Neurological Surgery
DX: M54.16 Radiculopathy, lumbar region (principal); M43.16 Spondylolisthesis, lumbar region
CPT/HCPCS: 72148